=== PATIENT | male | born 1960 | race Caucasian/White ===

== ENCOUNTER 2020-07-31 09:44 | Inpatient (IN) | payer MEDICAID, SELFPAY ==
[~2020-07-31] VITALS: Ht 162.6 cm; Wt 88.5 kg
[2020-07-31 09:54] VITALS: BP 126/70
--- NOTE | 2020-07-31 10:00 | NUR ---
PT C/O PRODUCTIVE COUGH W/ CLEAR/WHITE PHLEGM, GENERAL WEAKNESS, MUSCLE ACHES X 1 WEEK, AND FEVER FOR ONE DAY DURING THE PAST WEEK. HE HAD COVID TESTED NEGATIVE 3 WEEKS AGO W/ NEGATIVE RESULT. PT PRESENTS WITH A&OX4, TACHYCADIA, AND TACHYPNEA, BUT NO DIAPHORESIS, OR RESPIRATORY DISTRESS, OR ACCESSORY MUSCLE USE. DENIES N/V/D; SKIN IS PINK/WARM/DRY; AAOX4 WITH EVEN AND STEADY GAIT; LUNGS CLEAR BL; HR EVEN AND REGULAR; PT DENIES ANY FEVER, CP, SOB, OR COUGH AT THIS TIME; PATIENT STATES PAIN OF 4/10 AT THIS TIME; VSS; PATIENT POSITIONED FOR COMFORT; HOB ELEVATED; BEDRAILS UP X2; BED DOWN. ER MD MADE AWARE OF PT STATUS.
--- NOTE | 2020-07-31 10:00 | NUR ---
Ambulated to bed 8
--- NOTE | 2020-07-31 10:11 | NUR ---
X-Ray at bedside.
[2020-07-31] MEDS ORDERED: AZITHROMYCIN 250 MG TAB PO ONE (10:20)
[2020-07-31] MEDS ORDERED: cefTRIAXone 1,000 MG VIAL ONE (10:22)
--- NOTE | 2020-07-31 10:41 | NUR ---
COVID PCR, JAZMÍN, FLU SWABS, LABS, BLOOD CULTURES OBTAINED AT BEDSIDE AND SENT TO THE LAB.
[2020-07-31 11:28] LABS: BASOPHILS # (AUTO) 0.1 K/uL (0.00-0.22); BASOPHILS % (AUTO) 0.2 % (0.0-2.0); EOSINOPHILS # (AUTO) 0.7 K/uL (0-0.4); EOSINOPHILS % (AUTO) 2.6 % (0.0-4.0); HEMATOCRIT 37.1 % (36-52); HEMOGLOBIN 11.7 g/dL (12.0-18.0); LYMPHOCYTES # (AUTO) 0.9 K/uL (2.0-11.5); LYMPHOCYTES % (AUTO) 3.4 % (20.5-51.1); MEAN CORPUSCULAR HEMOGLOBIN 21 pg (27-31); MEAN CORPUSCULAR HGB CONC 32 g/dL (33-37); MEAN CORPUSCULAR VOLUME 66.6 fL (80-94); MONOCYTES # (AUTO) 2.4 K/uL (0.8-1.0); MONOCYTES % (AUTO) 9.4 % (1.7-9.3); NEUTROPHILS # (AUTO) 21.4 K/uL (1.8-7.7); NEUTROPHILS % (AUTO) 84.4 % (42.2-75.2); PLATELET COUNT (AUTO) 388 K/uL (140-450); RED BLOOD CELL COUNT(AUTO) 5.57 MIL/uL (4.20-6.10); RED CELL DISTRIBUTION WIDTH 19.3 % (11.6-13.7)
[2020-07-31 11:48] LABS: ALBUMIN 2.4 g/dL (3.4-5.0); ANION GAP 14.9 (8-16); CREATININE 0.8 mg/dL (0.6-1.3); POTASSIUM 3.9 mmol/L (3.5-5.1); TOTAL BILIRUBIN 0.3 mg/dL (0.0-1.0)
[2020-07-31 11:55] LABS: WHITE BLOOD COUNT (AUTO) 25.3 K/uL (4.8-10.8)
--- NOTE | 2020-07-31 12:00 | NUR ---
pt is resting in the room with vss.
[2020-07-31 12:05] LABS: C-REACTIVE PROTEIN QUANT 9.3 mg/dL (0.0-0.9)
[2020-07-31] MEDS ORDERED: NACL 0.9% 1,000 ML IV ONE ×2 (12:35)
[2020-07-31] MEDS ORDERED: HYDROcodone/APAP 5/325 MG 1 TAB TAB PO PRN (12:45)
[2020-07-31] MEDS ORDERED: ZOLPIDEM 5 MG TAB PO PRN (12:45)
[2020-07-31] MEDS ORDERED: MORPHINE SULFATE 2 MG/ML SYR IVP PRN (12:45)
[2020-07-31] MEDS ORDERED: ONDANSETRON 4 MG/2 ML VIAL IM/IVP PRN (12:45)
[2020-07-31] MEDS ORDERED: DOCUSATE SODIUM 100 MG GELCAP PO PRN (12:45)
[2020-07-31] MEDS ORDERED: POTASSIUM CHLORIDE 10 MEQ TABER PO PRN (12:50)
[2020-07-31] MEDS ORDERED: MAG SULF 2000 MG/WATER PREMIX 50 ML IV PRN (12:50)
[2020-07-31] MEDS ORDERED: BENA40TA PO (12:57)
[2020-07-31] MEDS ORDERED: AMLO10TA PO (12:57)
[2020-07-31] MEDS ORDERED: METF500T PO (12:57)
[2020-07-31 13:45] VITALS: BP 117/75
--- NOTE | 2020-07-31 13:45 | NUR ---
Patient will be admitted to care of PNA. Admited to TELE. Will go to room 113. Belongings list completed. Report to DHAVAL Dawson.
--- NOTE | 2020-07-31 13:45 | NUR ---
RECEIVED REPORT FROM ER NURSE PAYTON, PATIENT TRANSPORTED VIA GURNEY ORIENTED TO ROOM, AAOX4, ON 2LPM OXYGEN VIA NC, SKIN INTACT, KOREAN SPEAKING, IV SITES INTACT AND PATENT ON RIGHT AC WITH 2LITERS NSS BOLUS.CHECK VITAL SIGNS BP 117/75 MT 102 RR 18 TEMP; 99.4 AND OXYGEN SATURATION AT 95%. SAFETY MEASURES IN PLACE AND CALL LIGHT WITHIN REACH WILL CONTINUE TO MONITOR,
--- NOTE | 2020-07-31 13:45 | NUR ---
RECEIVED REPORT FROM ER NURSE PAYTON,ADMITTED TO MED SURG TELE VIA YULISA, [id number] 2 LPM OXYGEN VIA MA, SKIN INTACT, NEW ZEALANDER SPEAKING, AMBULATORY
[2020-07-31 14:11] LABS: PROTHROMBIN TIME 9.9 secs (10.8-13.4)
--- NOTE | 2020-07-31 14:16 | NUR ---
MRSA SWAB AND URINE COLLECTED FOR DRUG SCREEN.SENT TO LABORATORY
[2020-07-31 14:27] LABS: MAGNESIUM 2.1 mg/dL (1.8-2.4); PHOSPHORUS 3.5 mg/dL (2.5-4.9); THYROID STIMULATING HORMONE 0.62 uIU/mL (0.34-3.74)
[2020-07-31] MEDS: NACL 0.9% 1,000 ML IV SCH ×2 (15:04→20:23)
[2020-07-31] MEDS: ACETAMINOPHEN 325 MG TAB PO PRN (15:19)
--- NOTE | 2020-07-31 15:19 | NUR ---
PATIENT HAS FEVER OF 101.6 GAVE MEDICINE.
[2020-07-31 16:00] VITALS: BP 115/79
--- NOTE | 2020-07-31 17:22 | NUR ---
MADE ROUNDS AT THIS TIME, CHECKED PATIENTS TEMPERATURE 98.7 DEGREES F. PATIENT IS SITTING AND NO DISTRESS NOTED, DENIES PAIN. SAFETY MEASURES IN PLACE , CALL LIGHT WITHIN REACH. WILL CONTINUE TO MONITOR.
--- NOTE | 2020-07-31 18:40 | NUR ---
MEDICATION DUE GIVEN AT THIS TIME, NO DISTRESS NOTED AND DENIES PAIN. SAFETY MEASURES IN PLACE, CALL LIGHT WITHIN REACH. WILL CONTINUE TO MONITOR,
[2020-07-31 18:50] LABS: APPEARANCE,URINE CLEAR (CLEAR); BILIRUBIN,URINE NEGATIVE (NEGATIVE); BLOOD, URINE NEGATIVE (NEGATIVE); COLOR,URINE YELLOW (YELLOW); LEUKOCYTE ESTERASE ,URINE NEGATIVE (NEGATIVE); NITRITE, URINE NEGATIVE (NEGATIVE); UGLUCOSE NEGATIVE (NEGATIVE)
[2020-07-31 19:07] LABS: BARBITURATE, URINE NEGATIVE ng/ml (NEG <=200); BENZODIAZEPINE, URINE NEGATIVE ng/mL (NEG <=200); CANNABINOID, URINE NEGATIVE ng/mL (NEG <=50); COCAINE, URINE NEGATIVE ng/mL (NEG <=300); OPIATE, URINE NEGATIVE ng/mL (NEG <=2000); PHENCYCLIDINE SCREEN,URINE NEGATIVE ng/mL (NEG <=25)
--- NOTE | 2020-07-31 19:12 | NUR ---
ENDORSED TO NIGHT NURSE FOR CONTINUITY OF CARE, PT IS STABLE
--- NOTE | 2020-07-31 19:16 | NUR ---
RECEIVED BEDSIDE REPORT FROM AM NURSE. PT IS AAOX4, RESTING COMFORTABLY IN BED. NO ACUTE DISTRESS NOTED. RESPIRATIONS EVEN AND UNLABORED. ON 2L OF NC. PT HAS IV ACCESS ON RAC G18. PT REMAINS IN STABLE CONDITION. SAFETY MEASURES IN PLACED. CALL LIGHT WITHIN REACH. WILL CONTINUE TO MONITOR.
[2020-07-31 20:00] VITALS: BP 132/77
[2020-07-31] MEDS: ZINC SULF 220 MG CAP PO SCH (20:37)
[2020-07-31] MEDS: metFORMIN 500 MG TAB PO SCH (20:37)
[2020-07-31] MEDS: BLOOD GLUCOSE MONITORING 1 DEV DEV FS SCH (20:49)
[2020-07-31] MEDS: ENOXAPARIN 80 MG/0.8 ML SYR SUBQ SCH (20:51)
--- NOTE | 2020-07-31 21:00 | NUR ---
ALL DUE MEDS GIVEN ORDERED, TOLERATED WELL.
--- NOTE | 2020-07-31 21:16 | NUR ---
PT IS LYING COMFORTABLY IN BED, REMAINS IN STABLE CONDITION. VERBALLY RESPONSIVE, PANAMANIAN SPEAKING BUT CAN SPEAK LITTLE BIT OF EGYPTIAN. CALL LIGHT IS IN REACH. SAFETY MEASURES IN PLACED. WILL CONTINUE TO MONITOR.
--- NOTE | 2020-07-31 21:55 | NUR ---
RECEIVED CALL FROM DR CHATMAN WITH NO NEW ORDERS.
--- NOTE | 2020-07-31 23:55 | NUR ---
PT ASKED FOR SOMETHING TO EAT, GAVE ORANGE JUICE, AND JELLO.
[2020-08-01] VITALS: BP 157/85
--- NOTE | 2020-08-01 01:55 | NUR ---
PT LYING IN BED ASLEEP, NO SOB, NO APPARENT DISTRESS NOTED. SAFETY MEASURES IN PLACED. DROPLET PRECAUTIONS OBSERVED, COVID PCR STILL PENDING. CALL LIGHT WITHIN REACH. WILL CONTINUE TO MONITOR.
--- NOTE | 2020-08-01 03:55 | NUR ---
CHECKED ON PT, IN BED RESTING COMFORTABLY IN BED WITH NO DISTRESS. VITAL SIGNS STABLE, AFEBRILE. SAFETY MEASURES IN PLACED. CALL LIGHT WITHIN REACH. WILL CONTINUE TO MONITOR.
[2020-08-01 04:00] VITALS: BP 150/82
[2020-08-01] MEDS: NACL 0.9% 1,000 ML IV SCH ×2 (04:05→11:59)
--- NOTE | 2020-08-01 05:55 | NUR ---
PT IN BED SLEEPING COMFORTABLY IN BED, NO SOB, NO DISTRESS NOTED. SAFETY MEASURES IN PLACED. CALL LIGHT WITHIN REACH. WILL CONTINUE TO MONITOR.
[2020-08-01 06:17] LABS: ALBUMIN 1.9 g/dL (3.4-5.0); ANION GAP 15.4 (8-16); CARBON DIOXIDE 20.9 mmol/L (21-32); CREATININE 0.7 mg/dL (0.6-1.3); MAGNESIUM 1.9 mg/dL (1.8-2.4); PHOSPHORUS 3.4 mg/dL (2.5-4.9); POTASSIUM 4.3 mmol/L (3.5-5.1); TOTAL BILIRUBIN 0.4 mg/dL (0.0-1.0)
[2020-08-01 06:25] LABS: HEMATOCRIT 34.3 % (36-52); HEMOGLOBIN 10.7 g/dL (12.0-18.0); MEAN CORPUSCULAR HEMOGLOBIN 21 pg (27-31); MEAN CORPUSCULAR HGB CONC 31 g/dL (33-37); MEAN CORPUSCULAR VOLUME 66.4 fL (80-94); PLATELET COUNT (AUTO) 363 K/uL (140-450); RED BLOOD CELL COUNT(AUTO) 5.17 MIL/uL (4.20-6.10); WHITE BLOOD COUNT (AUTO) 23.4 K/uL (4.8-10.8)
[2020-08-01 06:48] LABS: LYMPHOCYTES % (MANUAL) 2 % (20-46); MONOCYTES % (MANUAL) 5 % (5-12)
--- NOTE | 2020-08-01 07:20 | NUR ---
ENDORSED PT TO AM SHIFT NURSE IN STABLE CONDITION FOR CONTINUITY OF CARE.
--- NOTE | 2020-08-01 07:25 | NUR ---
RECEIVED REPORT FROM PM RNBIJU. PT CAME FROM HOME. CROATIAN SPEAKING, SPEAKS LITTLE ALBANIAN. CC: FEVER X1 WEEK, COUGH. DX: PNEUMONIA, R/O COVID 19. HX: HTN, DM. NKA. TELE: SR TO ST. FULL CODE. IV: RAC 18G RUNNING NS AT 130. CCHO 60G DIET. O2: NC 2L. SKIN IS INTACT. PLAN: MONITOR AND MANAGE SYMPTOMS.
[2020-08-01 08:00] VITALS: BP 133/84
[2020-08-01 08:37] LABS: T4 (THYROXINE) 5.5 ug/dL (4.5-12.0)
--- NOTE | 2020-08-01 08:39 | NUR ---
PATIENT HAS BEEN SCREENED AND CATEGORIZED MODERATE NUTRITION RISK. PATIENT WILL BE SEEN WITHIN 3-5 DAYS OF ADMISSION. 08/03/20 08/05/[address]
[2020-08-01] MEDS ORDERED: AZITHROMYCIN 250 MG TAB PO SCH (09:00)
[2020-08-01] MEDS: BLOOD GLUCOSE MONITORING 1 DEV DEV FS SCH ×2 (09:00→20:32)
--- NOTE | 2020-08-01 09:34 | NUR ---
SOCIAL WORK NOTE: Patient's Orientation Unable To Assess Information Provided By ROSEMARY ARMIJO - Comments SW WAS UNABLE TO MEET PATIENT AT BEDSIDE DUE TO MEDICAL CONDITION. SW CALLED PATIENT'S ROOM PHONE BUT PATIENT DID NOT ANSWER. SW CONTACTED PATIENT'S ROSEMARY TO COMPLETE ASSESSMENT. Bicycle Fitter, Realtionship and Phone Number ROSEMARY CLARK [phone] [facility] Power of Parole Board Member No Does Patient Have a POLST No Identifying Problems No Social Work Triggers Is A Social Work Consult Needed No Mandate Report Filed No Explanation Of Identifying Problems PATIENT IS A 59-YEAR-OLD MALE ADMITTED FOR PNEUMONIA. PATIENT HAS PMHX OF DIABETES AND HYPERTENSION. PATIENT'S REPORTED NO HISTORY OF SUBSTANCE ABUSE OR MENTAL HEALTH. Admitted From Home Pre-Admission Level Of Functioning Status Independent/Ambulatory Prior Resources/Services Used In Last 12 Months No Prior Resources Used Prior DME No Prior DME Used Dialysis Comments PATIENT'S REPORTED THAT PATIENT DOES NOT RECEIVE DIALYSIS. Living Situation Lives With Family House Patient Had Caregiver No Home Support No Caregiver Issues Financial Issues No Known Financial Issue Referral To The Financial Counselor Needed No Factors/Needs No D/C Needs Identified Explanation And Or Other Factors Affecting/Possible DC Needs PATIENT'S REPORTED THAT SHE WOULD PICK PATIENT UP AT DISCHARGE. Pt/Rep Participated In Discharge Plan Yes Patient/Family Agress With Discharge Plan Yes Discharge Plan Comments TENTATIVE DISCHARGE PLAN IS FOR PATIENT TO RETURN HOME. DC Plan Status Initiated Addendum: 08/09/20 at 1030 by Patricio MILLS CELSO CONTACTED PATIENT'S ROSEMARY ARMIJO [phone] TO DISCUSS PATIENT'S PLAN OF CARE. DURING DISCUSSION, PATIENT'S BECAME EMOTIONAL AND STATED THAT SHE IS UNABLE TO TALK AT THIS TIME. CELSO PROVIDED DIRECT LINE [phone] TO ROSEMARY AND INFORMED HER THAT RELEVANT RESOURCES, SUPPORT, OR COUNSELING IS AVAILABLE TO HER. ROSEMARY STATED SHE WOULD CONTACT CELSO AT A LATER TIME. ROSEMARY VERBALIZED APPRECIATION. Addendum: 08/11/20 at 1201 by Patricio Hernadez SS CELSO FOLLOWED UP WITH ROSEMARY ALEKSANDER [phone] TO PROVIDE ADDITIONAL SERVICES OR GRIEF COUNSELING. CELSO LEFT AND WILL FOLLOW UP WITH PATIENT'S FAMILY.
[2020-08-01] MEDS: ENOXAPARIN 80 MG/0.8 ML SYR SUBQ SCH ×2 (09:47→20:42)
[2020-08-01] MEDS: VITAMIN D 400 IU TAB PO SCH (09:49)
[2020-08-01] MEDS: BENAZEPRIL 20 MG TAB PO SCH (09:49)
[2020-08-01] MEDS: metFORMIN 500 MG TAB PO SCH ×2 (09:49→20:32)
[2020-08-01] MEDS: ZINC SULF 220 MG CAP PO SCH ×2 (09:49→20:35)
[2020-08-01] MEDS: amLODIPine 5 MG TAB PO SCH (09:49)
[2020-08-01] MEDS: ASCORBIC ACID 500 MG TAB PO SCH (09:49)
--- NOTE | 2020-08-01 09:50 | NUR ---
PASSED MEDICATIONS TO PT. NO COMPLAINTS OF PAIN. NO COMPLAINTS OF SHORTNESS OF BREATH.
--- NOTE | 2020-08-01 11:30 | NUR ---
PT WILL BE HAVING A CT SCAN WITH CONTRAST. MUST HOLD METFORMIN FOR 2DAYS AFTER PROCEDURE. DR MARTINEZ NOTIFIED. DR. CARDENAS PLACED ORDER TO HOLD IV FLUIDS. DR MARTINEZ NOTIFIED.
[2020-08-01 12:00] VITALS: BP 119/77
--- NOTE | 2020-08-01 12:16 | NUR ---
DC PLANNIN YRS OLD FEMALE PATIENT WAS ADMITTED FROM HOME WITH A DX OF PNEUMONIA. PATIENT HAS A HX OF DM AND HTN . CXR SHOWED PARTIAL CONSOLIDATION CONCERNING MULTIFOCAL PNEUMONIA.ORDERED CT CHEST. RAPID COVID TEST NEGATIVE. PCR IS PENDING. STARTED IVF, IV ABX ROCEPHIN AND AZITHROMYCIN. CONSULTED WITH ID DR CHATMAN AND PULMO DR MCMAHAN. DC PLAN TO GO HOME WHEN STABLE CM TO FOLLOW Addendum: 08/03/20 at 1439 by Eugenia Perry CM SEEN BY PULTESSA - RECOMMENDED TO SWITCH TO HIGH FLOW O2 Addendum: 08/04/20 at 1050 by Olivia Barrera CM DC PLANNING: CHEST XRAY SHOWED INCREASING BILATERAL CONSOLIDATION SUGGESTING WORSENING MULTIFOCAL PNEUMONIA, SEEN BY PULMO AND ID, LEGIONELLA ANTIGEN ORDERED , SPUTUM CULTURE PENDING. CONTINUE CURRENT ANTIBIOTICS THERAPY. CM TO FOLLOW Addendum: 08/05/20 at 1332 by Eugenia Perry CM TRANSFERRED TO ICU YESTERDAY 08/04/2020 AT 1156. ON HIGH FLOW O2 AT 60, FIO2 100%, O2 SAT 96%. ON ROCEPHIN, AZITHROMYCIN. LEGIONELLA PNEUMO AG IS STILL PENDING. HIV RAPID SCREEN NEGATIVE. SEEN BY GUSTAVO - CONTINUE SUPPLEMENTAL O2, PATIENT REMAINS AT HIGH FOR INTUBATION. Addendum: 08/07/20 at 1224 by Eugenia Perry CM STILL ON HIGH FLOW O2, O2 SAT 93%. SEEN BY GUSTAVO 08/06 - THE PATIENT REMAINS A HIGH RISK FOR INTUBATION, PROGNOSIS IS GUARDED. Addendum: 08/08/20 at 1407 by Eugenia Perry CM intubated yesterday 08/07/2020 at 1800. fio2 100%, peep 14, tv 500 and o2 sat 92%. Addendum: 08/09/20 at 1042 by Eugenia Perry CM ORALLY INTUBATED TO VENT, FIO2 100%, PEEP 14, O2 SAT 89%. SEDATED WITH FENTANYL AND PROPOFOL. ON ZOSYN, VANCOMYCIN AND LEVAQUIN. PER PULMO - TO START PRONING PATIENT.
--- NOTE | 2020-08-01 13:00 | NUR ---
COMPLETED ROUND. NO COMPLAINTS OF PAIN. NO COMPLAINTS OF SOB. FLUSHED IV DUE TO ALARM GOING OFF. IV IS PATENT.
--- NOTE | 2020-08-01 15:00 | NUR ---
COMPLETED ROUND. NO COMPLAINTS OF PAIN. NO SIGNS OF DISTRESS. PT IS RESTING IN A CHAIR. AWAKE. RESPIRATIONS ARE EVEN AND UNLABORED.
[2020-08-01 16:00] VITALS: BP 138/72
[2020-08-01] MEDS ORDERED: COMMUNICATION ORDER MC PRN (18:20)
[2020-08-01] MEDS ORDERED: PANTOPRAZOLE 40 MG TABEC PO PRN (18:30)
[2020-08-01] MEDS: guaiFENesin DM 200/20 MG-10 ML 10 ML UDC PO PRN (18:34)
--- NOTE | 2020-08-01 19:20 | NUR ---
TRANSFER OF CARE TO PM RN. PT IS STABLE. NO SIGNS OF DISTRESS. RESPIRATIONS ARE EVEN AND UNLABORED.
--- NOTE | 2020-08-01 19:21 | NUR ---
RECEIVED BEDSIDE REPORT FROM DAY RN. PT IS ST LUCIAN/INDONESIAN SPEAKING. AAOX4. RESPIRATIONS ARE EQUAL AND UNLABORED ON 2L O2 VIA NC. LUNG SOUNDS ARE DIMINISHED AT BASE. SKIN INTACT. COLOR IS APPROPRIATE FOR ETHNICITY. PER TAIL SAWYER TEMP 103.5 WILL RECHECK REMOVED BLANKETS AND LOWERED AC. IV ON RAC 18G SL. PT ON CCHO 60 GM DIET. IS AMBULATORY AND ABLE TO MAKE NEEDS KNOWN. PT ON DROPLET ISOLATION TO R/O COVID-19. PT WITH COUGH NON PRODUCTIVE. POC DISCUSSED WITH PT. CALL LIGHT IS WITHIN REACH. WILL CONTINUE TO MONITOR.
--- NOTE | 2020-08-01 19:30 | NUR ---
TEMP RECHECKED 99.7 STARTED COOLING MEASURES WITH ICE PACKS AND DECREASED AC ALL BLANKETS REMOVED. WILL RECHECK TEMP.
[2020-08-01 20:00] VITALS: BP 154/78
--- NOTE | 2020-08-01 20:26 | NUR ---
PATIENT RECEIVED ON ROOM AIR, ALERT, AWAKE, INTERACTIVE. PATIENT DENIES OF ANY SOB, NO APPARENT RESPIRATORY DISTRESS NOTED. PRN TX NOT INDICATED AT THIS TIME. INFORMED PT TO CALL FOR PRN TX WHEN EXPERIENCING SOB. WILL CONTINUE TO MONITOR PT. PT WAS ASSESSED BY REGISTRY RT RUSTAM.
[2020-08-01] MEDS: ACETAMINOPHEN 325 MG TAB PO PRN (20:35)
--- NOTE | 2020-08-01 20:35 | NUR ---
VSS. TEMP 99.7 STARTED COOLING MEASURES AND ADMINISTERED TYLENOL. CRISTOPHER MEDICATIONS GIVEN. HELD METFORMIN D/T CT WITH CONTRAST TODAY. MED EDUCATION GIVEN. PT VERBALIZED UNDERSTANDING. ALL NEEDS MET. CALL LIGHT IS WITHIN REACH.
[2020-08-01] MEDS ORDERED: PANTOPRAZOLE 40 MG TABEC PO SCH (20:45)
--- NOTE | 2020-08-01 22:10 | NUR ---
ROUNDS MADE. PT IS SLEEPING COMFORTABLY IN BED WITH EYES CLOSED. CHEST RISE AND FALL NOTED. CALL LIGHT IS WITHIN REACH. WILL CONTINUE TO MONITOR.
[2020-08-02] VITALS: BP 132/70
--- NOTE | 2020-08-02 | NUR ---
VITAL SIGNS ARE WITHIN NORMAL LIMITS. PT DENIES ANY PAIN OR DISCOMFORT. SAFETY MEASURES ARE IN PLACE. CALL LIGHT IS WITHIN REACH. WILL CONTINUE TO MONITOR
--- NOTE | 2020-08-02 02:15 | NUR ---
ROUNDS MADE. PT IS SLEEPING COMFORTABLY IN BED WITH EYES CLOSED. CHEST RISE AND FALL NOTED. CALL LIGHT IS WITHIN REACH. WILL CONTINUE TO MONITOR.
[2020-08-02] MEDS ORDERED: DEXTROSE 50% 50 ML SYR IVP PRN (03:55)
[2020-08-02 04:00] VITALS: BP 154/71
[2020-08-02] MEDS: guaiFENesin DM 200/20 MG-10 ML 10 ML UDC PO PRN ×2 (04:31→22:32)
--- NOTE | 2020-08-02 04:31 | NUR ---
VSS. ADMINISTERED PRN ROBITUSSIN FOR COUGH AND TYLENOL FOR TEMP 100.5. PT TOLERATING WELL. ALL NEEDS MET. WILL CONTINUE TO MONITOR.
[2020-08-02] MEDS: ACETAMINOPHEN 325 MG TAB PO PRN ×2 (04:32→13:02)
[2020-08-02 05:10] LABS: HEMATOCRIT 36.8 % (36-52); HEMOGLOBIN 11.7 g/dL (12.0-18.0); MEAN CORPUSCULAR HEMOGLOBIN 21 pg (27-31); MEAN CORPUSCULAR HGB CONC 32 g/dL (33-37); MEAN CORPUSCULAR VOLUME 65.5 fL (80-94); PLATELET COUNT (AUTO) 375 K/uL (140-450); RED BLOOD CELL COUNT(AUTO) 5.62 MIL/uL (4.20-6.10); RED CELL DISTRIBUTION WIDTH 18.9 % (11.6-13.7)
[2020-08-02 05:36] LABS: ALBUMIN 1.9 g/dL (3.4-5.0); ANION GAP 14.7 (8-16); CARBON DIOXIDE 21.8 mmol/L (21-32); CREATININE 0.8 mg/dL (0.6-1.3); MAGNESIUM 1.8 mg/dL (1.8-2.4); PHOSPHORUS 2.9 mg/dL (2.5-4.9); POTASSIUM 3.5 mmol/L (3.5-5.1); TOTAL BILIRUBIN 0.6 mg/dL (0.0-1.0)
[2020-08-02 06:08] LABS: WHITE BLOOD COUNT (AUTO) 32.2 K/uL (4.8-10.8)
[2020-08-02 06:41] LABS: LYMPHOCYTES % (MANUAL) 2 % (20-46); MONOCYTES % (MANUAL) 4 % (5-12)
[2020-08-02 06:43] LABS: EOSINOPHILS % (MANUAL) 6 % (0-4)
--- NOTE | 2020-08-02 07:19 | NUR ---
GAVE BEDSIDE REPORT TO DAY RN. PT ENDORSED IN STABLE CONDITION.
--- NOTE | 2020-08-02 07:20 | NUR ---
RECEIVED REPORT FROM TRAFFIC LIEUTENANT RN FOR CONTINUITY OF CARE. PATIENT RESTING IN BED, SLEEPING, VISIBLE CHEST RISE AND FALLS. O2 SAT 97% WITH 2L NC. OCCASIONAL PRODUCTIVE COUGH. DROPLET PRECAUTION FOR R/O COVID. SKIN WARM AND DRY INTACT. IV SITE RIGHT AC 20G SALINE LOCK. PATENT. NO ACUTE DISTRESS NOTED AT THIS TIME. SAFETY MEASURES IN PLACE, CALL LIGHT WITHIN REACH. WILL CONTINUE TO MONITOR.
[2020-08-02 08:00] VITALS: BP 153/75
[2020-08-02] MEDS: amLODIPine 5 MG TAB PO SCH (08:57)
[2020-08-02] MEDS: BENAZEPRIL 20 MG TAB PO SCH (08:57)
[2020-08-02] MEDS: PANTOPRAZOLE 40 MG TABEC PO SCH (08:57)
[2020-08-02] MEDS: VITAMIN D 400 IU TAB PO SCH (08:57)
[2020-08-02] MEDS: ASCORBIC ACID 500 MG TAB PO SCH (08:58)
[2020-08-02] MEDS: ZINC SULF 220 MG CAP PO SCH ×2 (08:58→20:15)
[2020-08-02] MEDS: metFORMIN 500 MG TAB PO SCH ×2 (09:00→20:49)
--- NOTE | 2020-08-02 09:00 | NUR ---
SCHEDULED MORNING MEDICATIONS GIVEN. EDUCATION PROVIDED, PATIENT TOLERATED WELL. METFORMIN NOT GIVEN. HOLD FOR 48 HOURS S/P CT SCAN WITH CONTRAST. PER SUPERVISOR DOCK RN. NEXT DOSE OF METFORMIN WILL BE 08/03/2020 @ 2100. PATIENT'S O2 SAT 89% WITH 3L NC. INCREASED TO 4L. O2 SAT 90% - 91%. ENCOURAGED PATIENT TO TAKE DEEP BREATH AND RELAX. SAFETY MEASURES IN PLACE, CALL LIGHT WITHIN REACH. WILL CONTINUE TO MONITOR.
[2020-08-02] MEDS: ENOXAPARIN 80 MG/0.8 ML SYR SUBQ SCH ×2 (09:01→20:26)
[2020-08-02] MEDS: BLOOD GLUCOSE MONITORING 1 DEV DEV FS SCH ×2 (09:14→20:50)
[2020-08-02] MEDS: INSULIN LISPRO SLIDING SCALE 100 UNITS/ML VIAL SUBQ PRN ×2 (09:19→20:27)
--- NOTE | 2020-08-02 09:19 | NUR ---
4 UNITS OF HUMALOG ADMINISTERED FOR BLOOD GLUCOSE LEVEL 236. EDUCATION PROVIDED, PATIENT TOLERATED WELL. O2 SAT 90% WITH 4 L NC. WILL CALL RT TO CHECK THE PATIENT.
[2020-08-02 12:00] VITALS: BP 129/76
[2020-08-02] MEDS: PIPERACILLIN/TAZOBACTAM 3.375 GM in DEXTROSE 5% 50 ML IV SCH ×2 (12:00→17:59)
--- NOTE | 2020-08-02 12:00 | NUR ---
SCHEDULED MEDICATION IV ZOSYN ADMINISTERED VIA IVPB, EDUCATION PROVIDED, PATIENT TOLERATED WELL. PATIENT'S O2 SAT 90% WITH 4L NC. INFORMED RT TO CHECK THE PATIENT. VITAL SIGNS CHECKED. TEMP 101.3, WILL GIVE TYLENOL. CALL LIGHT WITHIN REACH. PATIENT TOLERATED WELL.
--- NOTE | 2020-08-02 12:35 | NUR ---
RT CHECKED THE PATIENT, BREATHING TREATMENT DONE. PATIENT'S O2 SAT 92% WITH 10L OXYMIZER. HR 135. PER RT. PATIENT NEEDS TO TAKE DEEP BREATH AND BREATHING THROUGH NOSE. ASKED BELIZEAN SPEAKING MICROFILMING DOCUMENT PREPARER TO TRANSLATE. PATIENT VERBALIZED UNDERSTANDING. WILL CONTINUE TO MONITOR.
--- NOTE | 2020-08-02 13:05 | NUR ---
TYLENOL GIVEN FOR TEMP 101.3. ICE PACK GIVEN. EDUCATION PROVIDED, ENCOURAGED PATIENT TO DRINK WATER, KEEP HYDRATION. VERBALIZED UNDERSTANDING. WILL CONTINUE TO MONITOR.
--- NOTE | 2020-08-02 14:00 | NUR ---
PER FILM TESTS CHECKER MIRACLE, PATIENT'S SPUTUM SAMPLE WAS CONTAMINATED AND REQUEST ANOTHER SPUTUM CULTURE. RECOLLECTED AND SENT TO THE LAB.
[2020-08-02 16:00] VITALS: BP 117/70
--- NOTE | 2020-08-02 17:15 | NUR ---
MADE ROUNDS. PATIENT RESTING IN BED WITH RIGHT LATERAL POSITION. O2 SAT 92% WITH 8L VIA OXYMIZER. HR 109. ENCOURAGED PATIENT TO RELAX AND TAKE DEEP BREATHE. SAFETY MEASURES IN PLACE, WILL CONTINUE TO MONITOR.
--- NOTE | 2020-08-02 18:01 | NUR ---
SCHEDULED MEDICATION ADMINISTERED. EDUCATION PROVIDED. PATIENT'S O2 SAT 88% WITH 8L OXYMIZER. INCREASED TO 10L, O2 SAT 88%. CALL RT. WAS INFORMED TO INCREASE TO 12L, O2 SAT 90-91%. RT WILL COME TO CHECK THE PATIENT. ENCOURAGED PATIENT TO TAKE DEEP BREATH. WILL CONTINUE TO MONITOR.
--- NOTE | 2020-08-02 18:32 | NUR ---
INFORMED DR. LEÓN REGARDING PATIENT'S CONDITION. O2 SAT 90% WITH 12 L VIA OXYMIZER. CONTINUE WITH CURRENT TREATMENT PLAN. NO NEW ORDER OBTAINED. WILL CONTINUE FOLLOW UP WITH RT, AND CLOSELY MONITOR THE PATIENT.
--- NOTE | 2020-08-02 18:57 | NUR ---
CALLED RT AGAIN. WILL COME TO CHECK THE PATIENT AFTER DONE THE CHANGE SHIFT REPORT. WILL FOLLOW UP.
--- NOTE | 2020-08-02 19:05 | NUR ---
ENDORSED PATIENT TO TURN LASTER RN FOR CONTINUITY OF CARE. PATIENT IS ON 12L VIA OXYMIZER, O2 SAT 90%.
--- NOTE | 2020-08-02 19:28 | NUR ---
RT CHECKED ON THE PATIENT. CONTINUE WITH 12L O2 VIA OXYMIZER. INFORMED FURNITURE UPHOLSTERER TO CLOSELY TO MONITOR THE PATIENT.
--- NOTE | 2020-08-02 19:30 | NUR ---
RECEIVED REPORT FROM POLO PUENTES DAYSHIFT NURSE AT BEDSIDE FOR CONTINUITY OF CARE, PT IN STABLE CONDITION.
[2020-08-02 20:00] VITALS: BP 122/96
--- NOTE | 2020-08-02 20:00 | NUR ---
PT IN BED AOX4 OXYMIZER AT 12 LITERS. RT MADE AWARE AND CHECKED PT, ORDER TO KEEP PT AT 90% 02 AND ABOVE. IV SITE ON RAC INTACT AND RUNNING N/S AT 10MLS/HR. V/S FOLLOWS: T 99.6. PT DECLINED COOLING MEASURES. P 120 R 18 B/P 122/96 02 IS AT 90%. UNIVERSAL FALLS PRECAUTIONS IN PLACE.
--- NOTE | 2020-08-02 21:00 | NUR ---
PT IN BED AND ON 12 LITERS VIA OXYMIZER 02 IS 91%. PT ALSO HAS IV SITE 18 GUAGE R [facility]. PT HAD PULLED OUT IV SITE AND WAS GIVEN NEW SITE ON RIGHT HAND 22G AND ORDERED ROCEPHIN WAS GIVEN . PT ALSO GIVEN ZINC SULFATE AND LOVENOX SQ S ORDERED. PT EDUCATED ON WHY MEDICATIONS WERE ORDERED AND SIDE EFFECTS, REINFORCEMENT NEEDED.
--- NOTE | 2020-08-02 22:30 | NUR ---
PT C/O OF HEART BURN AND COUGHING, PT WAS GIVEN PRN ROBITUSSIN FOR COUGHING, NO PRN ORDER NOTED FOR HEARTBURN WILL CALL MD REGARDING PT REQUEST. PT HEART RATE ALSO IN THE 120'S, WILL NOTIFY MD ARTIST RELATIONSHIP MANAGER.
[2020-08-02] MEDS ORDERED: MORPHINE SULFATE 2 MG/ML SYR IVP ONE (23:15)
[2020-08-02] MEDS ORDERED: PANTOPRAZOLE 40 MG TABEC PO ONE (23:15)
--- NOTE | 2020-08-02 23:15 | NUR ---
TEXTED MD LEÓN , NEW ORDERS NOTED FOR STAT EKG, TROPONIN LAB DRAW WELL MORPHINE AND PROTONIX X1.
[2020-08-03] VITALS: BP 130/66
[2020-08-03 05:26] LABS: ALBUMIN 1.6 g/dL (3.4-5.0); ANION GAP 15.2 (8-16); CARBON DIOXIDE 22.1 mmol/L (21-32); CREATININE 0.7 mg/dL (0.6-1.3); MAGNESIUM 1.9 mg/dL (1.8-2.4); PHOSPHORUS 2.9 mg/dL (2.5-4.9); POTASSIUM 3.3 mmol/L (3.5-5.1); TOTAL BILIRUBIN 0.6 mg/dL (0.0-1.0)
[2020-08-03 05:30] LABS: BASOPHILS # (AUTO) 0.1 K/uL (0.00-0.22); BASOPHILS % (AUTO) 0.4 % (0.0-2.0); EOSINOPHILS # (AUTO) 1.3 K/uL (0-0.4); EOSINOPHILS % (AUTO) 5.1 % (0.0-4.0); HEMATOCRIT 35.1 % (36-52); HEMOGLOBIN 11.1 g/dL (12.0-18.0); LYMPHOCYTES % (AUTO) 3.6 % (20.5-51.1); MEAN CORPUSCULAR HEMOGLOBIN 21 pg (27-31); MEAN CORPUSCULAR HGB CONC 32 g/dL (33-37); MONOCYTES # (AUTO) 1.6 K/uL (0.8-1.0); MONOCYTES % (AUTO) 6.2 % (1.7-9.3); NEUTROPHILS # (AUTO) 22.6 K/uL (1.8-7.7); NEUTROPHILS % (AUTO) 84.7 % (42.2-75.2); PLATELET COUNT (AUTO) 341 K/uL (140-450); RED BLOOD CELL COUNT(AUTO) 5.39 MIL/uL (4.20-6.10); RED CELL DISTRIBUTION WIDTH 18.6 % (11.6-13.7)
--- NOTE | 2020-08-03 07:05 | NUR ---
RECEIVED REPORT FROM NIGHTSHIFT NURSE. PT RESTING IN BED. ABLE TO MAKE NEEDS KNOWN. RESPIRATIONS EVEN AND UNLABORED WITH NO SOB OR RESPIRATORY DISTRESS. SKIN WARM AND DRY TO TOUCH. IV SITE IN R HAND 22G IS CLEAN, DRY, AND INTACT. SAFETY MEASURES IN PLACE. WILL CONTINUE TO MONITOR
[2020-08-03] MEDS: ALBUTEROL HFA MDI 90 MCG/ACTUATION 8 GM INH PRN ×2 (07:37→13:40)
[2020-08-03 08:00] VITALS: BP 133/68
[2020-08-03] MEDS: metFORMIN 500 MG TAB PO SCH ×2 (08:32→21:21)
[2020-08-03 08:35] LABS: WHITE BLOOD COUNT (AUTO) 26.7 K/uL (4.8-10.8)
[2020-08-03] MEDS: VITAMIN D 400 IU TAB PO SCH (08:35)
[2020-08-03] MEDS: BENAZEPRIL 20 MG TAB PO SCH (08:36)
[2020-08-03] MEDS: AZITHROMYCIN 250 MG TAB PO SCH (08:36)
[2020-08-03] MEDS: ZINC SULF 220 MG CAP PO SCH ×2 (08:36→21:22)
[2020-08-03] MEDS: amLODIPine 5 MG TAB PO SCH (08:36)
[2020-08-03] MEDS: ASCORBIC ACID 500 MG TAB PO SCH (08:37)
[2020-08-03] MEDS: PANTOPRAZOLE 40 MG TABEC PO SCH (08:37)
[2020-08-03] MEDS: ENOXAPARIN 80 MG/0.8 ML SYR SUBQ SCH ×2 (08:38→21:05)
--- NOTE | 2020-08-03 08:53 | NUR ---
ADMINISTERED SCHED MED PRESCRIBED PER MD ORDER. PT TOLERATED WELL. MEDICATION EDUCATION PERFORMED. PT VERBALIZED UNDERSTANDING. SAFETY MEASURES IN PLACE. WILL CONTINUE TO MONITOR
[2020-08-03] MEDS: INSULIN LISPRO SLIDING SCALE 100 UNITS/ML VIAL SUBQ PRN ×2 (09:00→21:31)
[2020-08-03] MEDS: BLOOD GLUCOSE MONITORING 1 DEV DEV FS SCH ×2 (09:00→21:42)
[2020-08-03] MEDS: guaiFENesin DM 200/20 MG-10 ML 10 ML UDC PO PRN ×2 (09:01→21:35)
[2020-08-03 12:00] VITALS: BP 134/76
--- NOTE | 2020-08-03 12:10 | NUR ---
08/03/20 RD INITIAL ASSESSMENT COMPLETED PLEASE REFER TO NUTRITION ASSESSMENT UNDER CARE ACTIVITY FOR ESTIMATED NUTRITIONAL NEEDS. 1. PENDING SPEECH THERAPIST RECOMMENDATIONS FOR DIET TEXTURE AND LIQUID CONSISTENCY 2. [facility] 3. RECOMMEND GLUCERNA ONCE DAILY 4. RD PROVIDED NUTRITION EDUCATION FOR CONSISTENT CARBOHYDRATE INTAKE 5. RD TO FOLLOW-UP 3-5 DAYS, MODERATE RISK NELSY JIN, RD
[2020-08-03] MEDS: ACETAMINOPHEN 325 MG TAB PO PRN ×2 (12:16→21:22)
--- NOTE | 2020-08-03 12:25 | NUR ---
PT HAS POTASSIUM 3.3. PRN POTASSIUM ADMINISTERED PRESCRIBED PER MD ORDER. PT HAS FEVER. PRN TYLENOL ADMINISTERED PRESCRIBED PER MD ORDER. MEDICATION EDUCATION PERFORMED. PT VERBALIZED UNDERSTANDING. SAFETY MEASURES IN PLACE. WILL CONTINUE TO MONITOR
--- NOTE | 2020-08-03 15:05 | NUR ---
TOLD PATIENT THAT IF HIS ANY QUESTIONS OR CONCERNS THAT SHE CAN CALL THE HOSPITAL AND SPEAK WITH THE NURSE AT ANY TIME SO THAT SHE CAN FEEL INCLUDED IN PATIENTS PLAN OF CARE.
[2020-08-03 16:00] VITALS: BP 136/74
--- NOTE | 2020-08-03 17:12 | NUR ---
HOURLY ROUNDING. PT RESTING IN BED. ABLE TO MAKE NEEDS KNOWN. RESPIRATIONS EVEN AND UNLABORED WITH NO SOB OR RESPIRATORY DISTRESS. SKIN WARM AND DRY TO TOUCH. SAFETY MEASURES IN PLACE. WILL CONTINUE TO MONITOR
--- NOTE | 2020-08-03 19:20 | NUR ---
ENDORSED AT BEDSIDE TO NIGHTSHIFT NURSE FOR CONTINUITY OF CARE. PT IS STABLE
[2020-08-03 20:00] VITALS: BP 135/63
--- NOTE | 2020-08-03 20:27 | NUR ---
DAUGHTER GET LINDSAY CALLED ASKING ABOUT FATHER CONDITION. RECEIVED VERBAL PERMISSION FROM FATHER TO UPDATE HIS CONDITION TO DAUGHTER GET. DAUGHTER WAS UPDATED REGARDING FATHER'S CONDITION.
--- NOTE | 2020-08-03 23:00 | NUR ---
PT REQUEST IV FLUIDS RUNNING AT 10MLS/HR TO BE DISCONNECTED. TEMP RETAKE DONE IT IS 97.1. PT REQUEST HEARTBURN MEDICATION, WILL SPEAK TO SWING SAW OPERATOR MD PINTO FOR ANY NEW PRN ORDERS.
[2020-08-04] VITALS (10 sets, daily range): BP systolic 106–184; BP diastolic 43–90
[2020-08-04] MEDS ORDERED: PANTOPRAZOLE 40 MG INJ VIAL IVP SCH ×2 (00:10→21:05)
--- NOTE | 2020-08-04 00:17 | NUR ---
PT REPOSITIONED IN BED V/S FOLLOWS: T 99.9 P 83 R 20 B/P 163/61 02 93% ON ROOM AIR. WOOD MACHINIST MD PINTO MADE AWARE ORDERS FOR PRN B/P OVER 160 RECEIVED. PT ALSO GIVEN COOLING MEASURES FOR INCREASED TEMP. ALL FALLS PRECAUTIONS IN PLACE. Addendum: 08/04/20 at 0020 by Estela Ring RN WRONG PT/WRONG CHART
--- NOTE | 2020-08-04 00:25 | NUR ---
SPOKE WITH ADJUSTMENT SUPERVISOR MD PINTO REGARDING PT REQUEST FOR HEART BURN MEDICATION. V/S FOLLOWS: T 97.8 P 105 R 20 B/P 117/63 02 96% WITH 45 LITERS HI FLOW N/C. ALL FALLS PREVENTION PROTOCOL IN PLACE.
--- NOTE | 2020-08-04 01:13 | NUR ---
PT IN BED RESTING WITH EYES CLOSED, BUT AROUSABLE TO NAME, HE WAS GIVEN IVP 40MG PROTONIX ORDERED FOR REQUESTED PRN GERD MEDICINE. PURPOSE AND SIDE EFFECTS DISCUSSED, PT VERBALIZED UNDERSTANDING.
--- NOTE | 2020-08-04 04:15 | NUR ---
PT IN BED RESTING WITH EYES CLOSED CONTINUES ON 45 LITERS HIGH FLOW N/C. PT IS STATING AT 90% 02. OTHER V/S FOLLOWSl: T 98.6 P 129 R 22 BP 131/70 02 90%. ALL REQUESTED NEEDS ATTENDED BY STAFF. ALL UNIVERSAL FALLS PRECAUTIONS IN PLACE.
[2020-08-04 05:17] LABS: BASOPHILS % (AUTO) 0.2 % (0.0-2.0); EOSINOPHILS # (AUTO) 1.5 K/uL (0-0.4); EOSINOPHILS % (AUTO) 6.1 % (0.0-4.0); HEMATOCRIT 35.1 % (36-52); HEMOGLOBIN 11.2 g/dL (12.0-18.0); LYMPHOCYTES # (AUTO) 0.7 K/uL (2.0-11.5); LYMPHOCYTES % (AUTO) 2.7 % (20.5-51.1); MEAN CORPUSCULAR HEMOGLOBIN 21 pg (27-31); MEAN CORPUSCULAR HGB CONC 32 g/dL (33-37); MEAN CORPUSCULAR VOLUME 65.1 fL (80-94); MONOCYTES # (AUTO) 1.3 K/uL (0.8-1.0); MONOCYTES % (AUTO) 5.3 % (1.7-9.3); NEUTROPHILS # (AUTO) 20.9 K/uL (1.8-7.7); NEUTROPHILS % (AUTO) 85.7 % (42.2-75.2); PLATELET COUNT (AUTO) 333 K/uL (140-450); RED CELL DISTRIBUTION WIDTH 18.8 % (11.6-13.7); WHITE BLOOD COUNT (AUTO) 24.4 K/uL (4.8-10.8)
[2020-08-04 06:08] LABS: ALBUMIN 1.4 g/dL (3.4-5.0); ANION GAP 12.6 (8-16); CARBON DIOXIDE 25.1 mmol/L (21-32); CREATININE 0.7 mg/dL (0.6-1.3); MAGNESIUM 2.1 mg/dL (1.8-2.4); PHOSPHORUS 2.2 mg/dL (2.5-4.9); POTASSIUM 3.7 mmol/L (3.5-5.1); TOTAL BILIRUBIN 0.5 mg/dL (0.0-1.0)
--- NOTE | 2020-08-04 07:20 | NUR ---
RECEIVED REPORT FROM NIGHT NURSE FOR CONTINUITY OF CARE, PT IS AAOX4, PT ON 45L HI-FLOW NASAL CANNULA OXYGEN, PT HAS RIGHT HAND 22G SALINE LOCK, PT WANTS NEW COUGH MEDICATION THE OTHER MEDICATION GIVES HIM ACID REFLUX, INTRODUCE SELF, UPDATED WHITEBOARD, BED IN LOW POSITION, SAFETY MEASURES IN PLACE, CALL LIGHT WITHIN REACH, WILL CONTINUE TO MONITOR.
[2020-08-04] MEDS: AZITHROMYCIN 250 MG TAB PO SCH (09:00)
[2020-08-04] MEDS: ENOXAPARIN 80 MG/0.8 ML SYR SUBQ SCH (09:01)
[2020-08-04] MEDS: INSULIN LISPRO SLIDING SCALE 100 UNITS/ML VIAL SUBQ PRN ×2 (09:02→21:05)
[2020-08-04] MEDS: BLOOD GLUCOSE MONITORING 1 DEV DEV FS SCH ×2 (09:03→20:59)
[2020-08-04] MEDS: ASCORBIC ACID 500 MG TAB PO SCH (09:04)
[2020-08-04] MEDS: BENAZEPRIL 20 MG TAB PO SCH (09:04)
[2020-08-04] MEDS: PANTOPRAZOLE 40 MG TABEC PO SCH (09:04)
[2020-08-04] MEDS: ZINC SULF 220 MG CAP PO SCH ×2 (09:04→21:03)
[2020-08-04] MEDS: amLODIPine 5 MG TAB PO SCH (09:05)
[2020-08-04] MEDS: metFORMIN 500 MG TAB PO SCH ×2 (09:05→21:03)
[2020-08-04] MEDS: guaiFENesin DM 200/20 MG-10 ML 10 ML UDC PO PRN ×2 (09:06→21:04)
--- NOTE | 2020-08-04 09:12 | NUR ---
ADMINISTERED SCHEDULED MEDICATION, 2 UNITS OF HUMALOG ADMINISTERED FOR BLOOD GLUCOSE OF 197, MEDICATION EDUCATION PROVIDED, PT VERBALIZED UNDERSTANDING, PT TOLERATED WELL, PT IS STABLE, CALL LIGHT WITHIN REACH, WILL CONTINUE TO MONITOR.
[2020-08-04] MEDS: VITAMIN D 400 IU TAB PO SCH (09:47)
[2020-08-04] MEDS: ALBUTEROL 0.083% 2.5 MG/3 ML NEBU INH SCH ×4 (10:40→22:28)
--- NOTE | 2020-08-04 10:50 | NUR ---
*ST: Bedside Swallow Evaluation* Pt is 59 yo Cymro-speaking M admitted from home 07/31/2020 c productive cough x1 wk & fever x1 day. Pt (-) COVID PCR 07/31 and (-) influenza A/B 07/31. Work-up multi-focal CAP, possible Legionella per Pulmonology. PMHx DM, HTN. CT Chest 08/01 - bilat consolidation & infiltration, most prominently noted in the lingula, consistent c multifocal pna; min L pleural effusion; mod large hiatal hernia. CXR 08/03 - increasing bilat consolidations when compared to 08/01/2020 suggesting worsening multifocal pna. Cleared with RNJazmyn, for BDSE. Per RN, pt c/o not having an appetite but took PO meds and ate pancakes without overt difficulty. RN reported pt recently given cough medication. Pt seen seated EOB, alert, on ?45L O2 HFNC, O2 sats at baseline 86-88% throughout session. Pt communicated in simple sentences with clear vocal quality and c/o phlegm which is not improving. Pt reports no difficulty with swallowing at this time. Pt observed to self-feed the following items: ice chips x6, ~1.5oz apple sauce, ~2oz canned MS pears, and engage in sequential cup sip of thin cold water (~ 3oz). Pt had timely and efficient mastication, fair control of bolus, no residue, timely swallow trigger, no overt coughing nor throat clearing. Vocal quality clear, dry, and unchanged post PO's given. Results and recommendations d/w pt's nsg staff. P: Rec continue present Regular (moist)/Thin Liquids diet Nsg to monitor and notify CUT OFF [facility] LOG of changes in status -Samara Robles MA, [facility]-C[facility] LOG Addendum: 08/04/20 at [address] Amended: Links added.
--- NOTE | 2020-08-04 11:05 | NUR ---
NOTIFIED MD NASH PT O2 IS 97, RECEIVED TORB FOR ABG. WILL INPUT ORDER AND CARRY OUT.
--- NOTE | 2020-08-04 11:35 | NUR ---
TRANSFERRED PT TO ICU FOR CONTINUITY OF CARE, PT HAS LABORED BREATHING ON HI FLOW WITH 100 OXYGEN, PT IS STABLE. REPORT GIVEN TO NURSE BENEDICT FOR CONTINUITY OF CARE
--- NOTE | 2020-08-04 11:36 | NUR ---
RECEIVED REPORT FROM DHAVAL HUFFMAN FOR CONTINUITY OF CARE. CC: SOB AND COUGH X1 WEEK. ADMITTING DX: PNA. PATIENT RESTING IN BED, AWAKE. PT IS AMBULATORY. AOX4, MAC[place]ONIAN SPEAKING. O2 SAT 88% ON 35L HIGH FLOW O2 NC, FIO2 88%, RESPIRATIONS ARE DEEP AND LABORED. OCCASIONAL PRODUCTIVE COUGH. SKIN IS INTACT. CONTINENT BOWEL AND BLADDER. IV SITE RIGHT HAND 22G SALINE LOCK. SAFETY MEASURES IN PLACE, CALL LIGHT WITHIN REACH. WILL CONTINUE TO MONITOR.
[2020-08-04] MEDS: ACETAMINOPHEN 325 MG TAB PO PRN ×2 (12:30→22:00)
--- NOTE | 2020-08-04 12:30 | NUR ---
TEMP 101.0, COOLING MEASURES RENDERED. TYLENOL GIVEN ORDERED
--- NOTE | 2020-08-04 13:00 | NUR ---
TEMP 99.4, EATING LUNCH AT THIS TIME. WILL CONTINUE TO MONITOR
--- NOTE | 2020-08-04 16:00 | NUR ---
PT RESTING IN BED. NO C/O PAIN, STILL ON 35L HIGH FLOW N/C, O2SAT 98%, WITH FAST BUT EVEN RESPIRATIONS. NO APPARENT DISTRESS
--- NOTE | 2020-08-04 18:35 | NUR ---
PT SITTING IN BED. NO C/O PAIN, NO S/S OF DISTRESS, WITH FAST AND EVEN RESPIRATIONS. ON 35L HIGH FLOW O2 FIO2 87%
--- NOTE | 2020-08-04 20:00 | NUR ---
REPORT RECEIVED FROM DAY SHIFT RN. PT ON NASAL CANNULA HIGH FLOW @ 40LPM WITH 100% FIO2. PT RESPIRATION IS EVEN BUT LABORED. ALERT AND ORIENTED. ABLE TO MAKE NEEDS KNOWN TO STAFF. SKIN WARM, DRY AND INTACT. ABDOMEN SOFT, ROUND AND NON TENDER. ORAL MUCOSA PINK AND MOIST. DENIES PAIN AT TIS TIME. PERIPHERAL ACCESS ON THE RIGHT HAND G22. ASYMPTOMATIC, PATENT AND INTACT. BED IN LOWEST POSITION, SIDE RAILS UP. ALL SAFETY MEASURES IN PLACE. WILL CONTINUE TO MONITOR PT.
[2020-08-04] MEDS: cefTRIAXone 2,000 MG in DEXTROSE 5% 100 ML IV SCH (21:02)
[2020-08-04] MEDS: LORazepam 2 MG/ML VIAL IM/IVP PRN (21:05)
--- NOTE | 2020-08-04 21:05 | NUR ---
PT COMPLAINTS OF HEART BURN. CALLED DR. NASH AND ORDERED PROTONIX IV 40MG ONE TIME DOSE. WILL CONTINUE TO MONITOR.
--- NOTE | 2020-08-04 21:07 | NUR ---
PT COMPLAINTS THAT HE IS ANXIOUS PRN ATIVAN GIVEN ORDERED. PT WAS COUGHING TOO, PRN ROBITUSSIN GIVEN WELL. WILL CONTINUE TO MONITOR PT.
[2020-08-04] MEDS ORDERED: PANTOPRAZOLE 40 MG INJ VIAL ONE (21:13)
--- NOTE | 2020-08-04 21:14 | NUR ---
ONE TIME ORDER PROTONIX IV 40MG GIVEN ORDERED. WILL MONITOR PT.
--- NOTE | 2020-08-04 22:00 | NUR ---
LATEST TEMP 101.0, PRN TYLENOL GIVEN ORDERED. WILL CONTINUE TO MONITOR.
--- NOTE | 2020-08-04 22:55 | NUR ---
LATEST TEMP OF 97.3, WILL CONTINUE TO MONITOR. PT DENIES PAIN.
--- NOTE | 2020-08-04 23:00 | NUR ---
NO COMPLAINTS MADE THUS FAR. PT RESTING IN BED, WITH EYES CLOSED. WILL CONTINUE TO MONITOR PT.
[2020-08-05] VITALS (14 sets, daily range): BP systolic 96–146; BP diastolic 49–101
--- NOTE | 2020-08-05 02:00 | NUR ---
PT ENCOURAGED TO LAY ON HIS RIGHT SIDE, NO DISTRESS OBSERVED, WILL CONTINUE TO MONITOR.
[2020-08-05] MEDS: ALBUTEROL 0.083% 2.5 MG/3 ML NEBU INH SCH ×2 (02:25→07:00)
--- NOTE | 2020-08-05 04:30 | NUR ---
PT RESTING IN BED WITH NO DISTRESS OBSERVED. ABLE TO POSITION HIMSELF IN BED. WILL CONTINUE TO MONITOR.
[2020-08-05 05:49] LABS: BASOPHILS # (AUTO) 0.1 K/uL (0.00-0.22); BASOPHILS % (AUTO) 0.3 % (0.0-2.0); EOSINOPHILS # (AUTO) 0.9 K/uL (0-0.4); EOSINOPHILS % (AUTO) 3.8 % (0.0-4.0); HEMATOCRIT 34.9 % (36-52); HEMOGLOBIN 10.9 g/dL (12.0-18.0); LYMPHOCYTES % (AUTO) 4.3 % (20.5-51.1); MEAN CORPUSCULAR HEMOGLOBIN 21 pg (27-31); MEAN CORPUSCULAR HGB CONC 31 g/dL (33-37); MEAN CORPUSCULAR VOLUME 66.4 fL (80-94); MONOCYTES # (AUTO) 1.4 K/uL (0.8-1.0); MONOCYTES % (AUTO) 6.1 % (1.7-9.3); NEUTROPHILS # (AUTO) 19.9 K/uL (1.8-7.7); NEUTROPHILS % (AUTO) 85.5 % (42.2-75.2); PLATELET COUNT (AUTO) 364 K/uL (140-450); RED BLOOD CELL COUNT(AUTO) 5.25 MIL/uL (4.20-6.10); RED CELL DISTRIBUTION WIDTH 18.9 % (11.6-13.7); WHITE BLOOD COUNT (AUTO) 23.3 K/uL (4.8-10.8)
[2020-08-05 06:28] LABS: ALBUMIN 1.4 g/dL (3.4-5.0); ANION GAP 12.9 (8-16); CARBON DIOXIDE 26.2 mmol/L (21-32); CREATININE 0.8 mg/dL (0.6-1.3); MAGNESIUM 2.4 mg/dL (1.8-2.4); POTASSIUM 4.1 mmol/L (3.5-5.1); TOTAL BILIRUBIN 0.3 mg/dL (0.0-1.0)
--- NOTE | 2020-08-05 07:15 | NUR ---
RECEIVED REPORT FROM NIGHT RN FOR CONTINUITY OF CARE. CC: SOB AND COUGH X1 WEEK. ADMITTING DX: PNA. PATIENT ASLEEP IN BED. PT IS AMBULATORY. AOX4, HUNGARIAN SPEAKING. O2 SAT 98% ON 55L HIGH FLOW O2 NC, FIO2 100%, RESPIRATIONS ARE DEEP AND RAPID. OCCASIONAL COUGH. NO C/O PAIN. SKIN IS INTACT. CONTINENT BOWEL AND BLADDER. URINAL AND COMMODE AT BEDSIDE. IV SITE RIGHT HAND 22G SALINE LOCK. SAFETY MEASURES IN PLACE, CALL LIGHT WITHIN REACH. WILL CONTINUE TO MONITOR.
--- NOTE | 2020-08-05 08:12 | NUR ---
AWAKE AND ALERT PATIENT WITH BREAKFAST TRAY AT THIS TIME NO EVIDENCE OF DISTRESS NOTED PLATE AND WELD INSPECTOR TO ATTEMPT HHN THERAPY AT A LATER TIME DUE TO TACHYCARDIC STATUS HR +138 PLATE AND WELD INSPECTOR WILL CONSULT WITH DR. RACHEL MCMAHAN NOW IN ICU
[2020-08-05] MEDS: AZITHROMYCIN 250 MG TAB PO SCH (08:16)
[2020-08-05] MEDS: PANTOPRAZOLE 40 MG TABEC PO SCH (08:17)
[2020-08-05] MEDS: ACETAMINOPHEN 325 MG TAB PO PRN ×3 (08:17→20:12)
[2020-08-05] MEDS: metFORMIN 500 MG TAB PO SCH ×2 (08:17→20:12)
[2020-08-05] MEDS: ZINC SULF 220 MG CAP PO SCH ×2 (08:17→20:12)
[2020-08-05] MEDS: ASCORBIC ACID 500 MG TAB PO SCH (08:17)
[2020-08-05] MEDS: BENAZEPRIL 20 MG TAB PO SCH (08:18)
[2020-08-05] MEDS: amLODIPine 5 MG TAB PO SCH (08:18)
--- NOTE | 2020-08-05 08:20 | NUR ---
REVIEWED CARDIAC AND PULMONARY STATUS WITH DR. RACHEL MCMAHAN NEW ORDER: OK TO CHANGE RESPIRATORY DRUG TO XOPONEX 1.24mg WITH SAME FREQUENCY
[2020-08-05] MEDS: BLOOD GLUCOSE MONITORING 1 DEV DEV FS SCH ×2 (08:39→20:13)
[2020-08-05] MEDS: INSULIN LISPRO SLIDING SCALE 100 UNITS/ML VIAL SUBQ PRN (08:40)
[2020-08-05] MEDS: ENOXAPARIN 40 MG/0.4 ML SYR SUBQ SCH (08:40)
--- NOTE | 2020-08-05 08:45 | NUR ---
DUE MORNING MEDS GIVEN. BLOOD SUGAR 167. COVERAGE GIVEN. TEMP 101.4, COOLING MEASURES DONE, TYLENOL GIVEN ORDERED. WILL CONTINUE TO MONITOR
[2020-08-05] MEDS: VITAMIN D 400 IU TAB PO SCH (09:27)
--- NOTE | 2020-08-05 11:47 | NUR ---
PT RESTING IN BED. NO C/O PAIN, STILL ON 55L HIGH FLOW N/C, O2SAT 98%, TEMP 99.5
[2020-08-05] MEDS: LEVALBUTEROL 1.25 MG/0.5 ML NEBU INH SCH ×4 (12:00→22:56)
--- NOTE | 2020-08-05 14:17 | NUR ---
WITH TEMP OF 101.6. COOLING MEASURES RENDERED, ENCOURAGED TO DRINK MORE FLUIDS. TYLENOL GIVEN ORDERED. WILL CONTINUE TO MONITOR
--- NOTE | 2020-08-05 15:15 | NUR ---
TEMP 97.5. WILL CONTINUE TO MONITOR
--- NOTE | 2020-08-05 18:15 | NUR ---
TEMP 100.0, COOLING MEASURES RENDERED.
--- NOTE | 2020-08-05 19:30 | NUR ---
RECEIVED REPORT FROM DAY SHIFT, PT AAOX4 FOLLOWING COMMANDS SITTING UP IN BED. PT ST ON MONITOR 130-140S, PALPABLE PULSES, NO EDEMA NOTED. LUNGS DIMINISHED, ON HI FLOW O2 @ 100% VIA NASAL CANNULA, DENIES COUGH/CP/SOB @ THIS TIME. ABD SOFT ROUND NON DISTENDED, ACTIVE BOWEL SOUNDS. VOIDING, USING BEDSIDE COMMODE, LAST BM 08/04. DENIES N/V/D. SKIN WARM DRY PINK INTACT. IV TO R HAND NOTED. BED LOCKED IN LOWEST POSITION. SAFETY PRECAUTIONS IN PLACE. CALL LIGHT WITHIN REACH.
[2020-08-05] MEDS: guaiFENesin DM 200/20 MG-10 ML 10 ML UDC PO PRN (20:12)
[2020-08-05] MEDS: cefTRIAXone 2,000 MG in DEXTROSE 5% 100 ML IV SCH (20:13)
[2020-08-05] MEDS: LORazepam 2 MG/ML VIAL IM/IVP PRN (20:14)
--- NOTE | 2020-08-05 21:30 | NUR ---
PT INSTRUCTED TO TURN AND REPOSITION, MEDS ADMINISTERED ORDERED. WILL CONTINUE TO OBSERVE.
--- NOTE | 2020-08-05 23:05 | NUR ---
RT @ BEDSIDE; INSTRUCTING PT TO TURN AND PRONE. PT WAS DESATURATING TO 78-80% WHILE SUPINE. PT NOW 95-97% PRONE/ON SIDE. WILL CONTINUE TO OBSERVE.
[2020-08-06] VITALS (19 sets, daily range): BP systolic 112–154; BP diastolic 44–89
--- NOTE | 2020-08-06 00:48 | NUR ---
PT HAS EYES CLOSED, AROUSABLE, 98% ON HI FLOW NASAL CANNULA, FLACC 0 WILL CONTINUE TO OBSERVE.
[2020-08-06] MEDS: ACETAMINOPHEN 325 MG TAB PO PRN ×5 (02:09→23:49)
[2020-08-06] MEDS: LEVALBUTEROL 1.25 MG/0.5 ML NEBU INH SCH ×6 (03:00→23:59)
--- NOTE | 2020-08-06 03:34 | NUR ---
PT ASSISTED WITH BATH, LINEN CHANGED. PT ENCOURAGED TO TURN AND REPOSITION. WILL CONTINUE TO OBSERVE.
--- NOTE | 2020-08-06 04:18 | NUR ---
PT HAS EYES CLOSED; AROUSABLE, DENIES PAIN @ THIS TIME. WILL CONTINUE TO OBSERVE.
[2020-08-06 05:39] LABS: BASOPHILS # (AUTO) 0.2 K/uL (0.00-0.22); BASOPHILS % (AUTO) 0.7 % (0.0-2.0); EOSINOPHILS # (AUTO) 1.1 K/uL (0-0.4); EOSINOPHILS % (AUTO) 4.6 % (0.0-4.0); HEMATOCRIT 33.6 % (36-52); HEMOGLOBIN 10.7 g/dL (12.0-18.0); LYMPHOCYTES # (AUTO) 0.8 K/uL (2.0-11.5); LYMPHOCYTES % (AUTO) 3.3 % (20.5-51.1); MEAN CORPUSCULAR HEMOGLOBIN 21 pg (27-31); MEAN CORPUSCULAR HGB CONC 32 g/dL (33-37); MEAN CORPUSCULAR VOLUME 65.3 fL (80-94); MONOCYTES # (AUTO) 0.9 K/uL (0.8-1.0); MONOCYTES % (AUTO) 3.8 % (1.7-9.3); NEUTROPHILS # (AUTO) 20.3 K/uL (1.8-7.7); NEUTROPHILS % (AUTO) 87.6 % (42.2-75.2); PLATELET COUNT (AUTO) 413 K/uL (140-450); RED BLOOD CELL COUNT(AUTO) 5.15 MIL/uL (4.20-6.10); RED CELL DISTRIBUTION WIDTH 18.7 % (11.6-13.7); WHITE BLOOD COUNT (AUTO) 23.2 K/uL (4.8-10.8)
[2020-08-06 06:05] LABS: ANION GAP 12.3 (8-16); CARBON DIOXIDE 26.5 mmol/L (21-32); CREATININE 0.7 mg/dL (0.6-1.3); POTASSIUM 3.8 mmol/L (3.5-5.1)
[2020-08-06 06:36] LABS: MAGNESIUM 2.4 mg/dL (1.8-2.4); PHOSPHORUS 3.6 mg/dL (2.5-4.9)
--- NOTE | 2020-08-06 07:05 | NUR ---
PT NOTED TO BE WITH O2 SAT 88-89 WITH HIGH FLOW 100% + NON REBREATHER MASK OVER IT, RESP LABORED, PT APPEARS ANXIOUS, PT ASSISTED INTO PRONE POSITION WITH GREAT DIFFICULTIES, PT DIDN'T WANT TO CHANGE POSITIONS, EDUCATION PROVIDED, PT AGREED TO PRONE.
--- NOTE | 2020-08-06 07:27 | NUR ---
REPORT GIVEN TO DAY SHIFT FOR CONTINUITY CARE
--- NOTE | 2020-08-06 07:29 | NUR ---
RECEIVED BEDSIDE REPORT FROM MIX CHEMIST NURSE DIPTI FOR CONTINUITY OF CARE. PATIENT IS LYING ON PRONE POSITION COMFORTABLY, AROUSABLE TO VOICE, ABLE TO FOLLOW SIMPLE COMMAND, AND MAKE NEED KNOWN, SPEAK IRANIAN, AND ABLE TO UNDERSTAND SOME BHUTANESE. PATIENT IS ON HIGH FLOW OXYGEN AND NONREBREATHER, SPO2 AT 95%, LUNG SOUNDS DIMINISHED ON AUSCULTATION, SINUS TACHYCARDIAC ON MONITOR, 130-136 BPM. DENIED PAIN, SOB AND ANY DISCOMFORT AT THIS TIME. IV ON LFA 20G, CLEAN AND INTACT, SALINE LOCK. SKIN CLEAN AND DRY, ABDOMEN SOFT AND ROUND, BOWEL SOUNDS ACTIVE. PATIENT IS CONTINENT AND ABLE TO USE URINAL AND BEDSIDE COMMODE. FIRE EQUIPMENT OPERATOR IN PLACE. SAFETY MEASURES IN PLACE. ENHANCED DROPLET PRECAUTION IN PLACE. BED IN LOW POSITION, CALL LIGHT WITHIN REACH, AND BED LOCKED. INSTRUCTED PATIENT TO USE THE CALL LIGHT FOR ANY ASSISTANCE AND PATIENT AWARE.
--- NOTE | 2020-08-06 07:59 | NUR ---
RECEIVED ON A HIGH FLOW WITH SETTINGS NOTED PLUGGED INTO RED OUTLET TOLERATING WELL TO A HIGH FLOW NASAL CANNULA WITH HEATED CIRCUIT PLUS A NON REBREATHER AT 15 LPM LOC ASLEEP EASILY AWAKENS RESTING WELL TACHYPNEIC AT 40 BPM GOOD CHEST RISE PRONE PATIENT SWITCHED TO RIGHT SIDE
[2020-08-06] MEDS: AZITHROMYCIN 250 MG TAB PO SCH (08:02)
[2020-08-06] MEDS: guaiFENesin DM 200/20 MG-10 ML 10 ML UDC PO PRN (08:02)
[2020-08-06] MEDS: LORazepam 2 MG/ML VIAL IM/IVP PRN (08:02)
[2020-08-06] MEDS: metFORMIN 500 MG TAB PO SCH ×2 (08:03→20:03)
[2020-08-06] MEDS: ENOXAPARIN 40 MG/0.4 ML SYR SUBQ SCH (08:03)
--- NOTE | 2020-08-06 08:05 | NUR ---
TYLENOL GIVEN FOR FEVER 101.0, ATIVAN GIVEN FOR ANXIETY, OTHER AM MEDS GIVEN, PT MARTHA PILLS WHOLE, TAKING WATER WELL WITHOUT PROBLEM. PT TURNED TO R SIDED ALVARADO POSITION.
--- NOTE | 2020-08-06 08:50 | NUR ---
ROSEMARY CALLED FOR PT UPDATE, TELEPHONE TAKEN INTO ROOM FOR PT TO SPEAK TO HER WITH SPEAKER PHONE.
[2020-08-06] MEDS: BLOOD GLUCOSE MONITORING 1 DEV DEV FS SCH ×2 (08:54→20:14)
[2020-08-06] MEDS: VITAMIN D 400 IU TAB PO SCH (08:58)
--- NOTE | 2020-08-06 09:05 | NUR ---
PT RESTING ON HIS RIGHT SIDE WITH EYES CLOSED, TEMP DECREASED TO 98.8.
[2020-08-06] MEDS: PANTOPRAZOLE 40 MG INJ VIAL IVP SCH (09:30)
[2020-08-06] MEDS: ASCORBIC ACID 500 MG TAB PO SCH (09:30)
[2020-08-06] MEDS: BENAZEPRIL 20 MG TAB PO SCH (09:31)
[2020-08-06] MEDS: amLODIPine 5 MG TAB PO SCH (09:31)
--- NOTE | 2020-08-06 10:21 | NUR ---
ASSISTED PATIENT TO LYING ON HIS STOMACH, PATIENT TOLERATED FAIR, SPO2 AT 95% ON HIGH FLOW AND NONREBREATHER. TEMPERATURE 97.8 TEMPORALLY. PATIENT IS RESTING WITH BOTH EYES CLOSED. CORRECTIONAL OFFICER SERGEANT IN PLACE. SAFETY MEASURES IN PLACE. BED IN LOW POSITION, CALL LIGHT WITHIN REACH. INSTRUCTED PATIENT TO USE THE CALL LIGHT FOR ANY ASSISTANCE AND PATIENT AWARE.
--- NOTE | 2020-08-06 11:40 | NUR ---
RESTING COMFORTABLY ON RIGHT SIDE GOOD CHEST RISE STRONG NON PRODUCTIVE COUGH DURING HHN THERAPY HIGH FLOW ON AND FUNCTIONING WELL FIO2 100% FLOW 40 L PLUS NON REBREATHER 100% AT 15 LPM
--- NOTE | 2020-08-06 12:04 | NUR ---
RECEIVED A CALL FROM ROSEMARY, UNDATED ROSEMARY WITH PATIENT'S CURRENT CONDITION AND ROSEMARY WAS AWARE.
--- NOTE | 2020-08-06 12:10 | NUR ---
DR VASYL Burgess IS ROUNDING ON PATIENT.
--- NOTE | 2020-08-06 12:20 | NUR ---
PT RESTING ON HIS SIDE, RESP EVEN LESS LABORED THAN BEFORE, PT DENIES PAIN, OFFERED TO ASSIST WITH LUNCH TRAY, PT REFUSES TO SIT UP TO EAT NOW, STATES "MAYBE LATER", MARTHA 2/3 OF GLUCERNA FOR NOW. WILL ATTEMPT AT LATER TIME.
--- NOTE | 2020-08-06 14:10 | NUR ---
INCREASED HR 132, SKIN HOT TO TOUCH, TEMP 100.8 TEMP, TYLENOL GIVEN PER PRN ORDER.
--- NOTE | 2020-08-06 16:13 | NUR ---
ASSISTED PATIENT TO TURN AND LYING ON HIS STOMACH, PILLOWS PLACED UNDER STOMACH AND LEGS TO PROVIDED COMFORT. PATIENT IS RESTING ON BED ON PRONE POSITION. CAPACITOR ASSEMBLER IN PLACE. SAFETY MEASURES IN PLACE. BED IN LOW POSITION AND CALL LIGHT WITHIN REACH.
--- NOTE | 2020-08-06 17:12 | NUR ---
DR MCMAHAN IS ASSESSING AND TALKING TO PATIENT AT BEDSIDE.
--- NOTE | 2020-08-06 17:45 | NUR ---
SATURATION 96% ON HIGH FLOW WITH FIO2 AT 100% AND FLOW AT 40 LPM TITRATED FIO2 TO 95% MALICK/RN NOTIFIED
--- NOTE | 2020-08-06 18:12 | NUR ---
TEMPERATURE CHECKED AND RECEIVED 100.4 TEMPORALLY, PATIENT COMPLAINED OF CHILL. MEDICATED WITH TYLENOL AND APPLIED COOLING MEASURES. REPOSITIONED PATIENT, PATIENT IS LYING ON PRONE POSITION COMFORTABLY WITH PILLOWS ON STOMACH AND LEGS. TOOL AND PRODUCTION PLANNER IN PLACE. SAFETY MEASURES IN PLACE.
--- NOTE | 2020-08-06 18:16 | NUR ---
DR PINTO NOTIFIED OF TEMPERATURE SPIKE AGAIN, OK TO GIVE TYLENOL NOW (4HRS FROM LAST DOSE), TELEPHONE ORDER RECEIVED FOR IVF NS 100ML/HR, ZOSYN 3.375G IVPB Q6HRS, REPEAT URINE/BLOOD/SPUTUM CULTURE.
--- NOTE | 2020-08-06 18:38 | NUR ---
STARTED IVF PER MD ORDER. PHARMACY AFTER HOUR OVERRIDE.
[2020-08-06] MEDS: NACL 0.9% 1,000 ML IV SCH (18:50)
--- NOTE | 2020-08-06 18:51 | NUR ---
REASSESSED TEMPERATURE AND RECEIVED 99.1 TEMPORALLY. EXPLAINED TO PATIENT, URINE NEEDED, PROVIDED SPECIMEN CUP, PATIENT SAID OK. WILL ENDORSE TO ONCOMING SHIFT NURSE. PATIENT IS LYING ON BED. NO SIGNS OF ACUTE DISTRESS NOTED. ECOLOGICAL RISK ASSESSOR IN PLACE. SAFETY MEASURES IN PLACE.
--- NOTE | 2020-08-06 19:16 | NUR ---
ENDORSED PATIENT AT BEDSIDE FOR SENIOR PRODUCT ANALYST NURSES TO CONTINUITY OF CARE. PATIENT IS STABLE CONDITION.
--- NOTE | 2020-08-06 20:00 | NUR ---
REPORT RECEIVED FROM DAY SHIFT RN. PT IS ALERT AND ORIENTED, ABLE TO MAKE NEEDS KNOWN TO STAFF. PT ON HIGH FLOW @ 30L WITH 100% FIO2, NRB MASK @ 15L. RESPIRATIONS ARE EVEN BUT LABORED. WHEEZING HEARD UPON AUSCULTATION. ABDOMEN LARGE, SOFT, NON TENDER. PT IS CONTINENT OF BOTH BLADDER AND BOWEL. ABLE TO USE URINAL AND BEDSIDE COMMODE. SKIN WARM, DRY AND INTACT. PT IS AFEBRILE. BED IN LOWEST POSITION, HOB 30 DEGREES, SIDE RAILS UP. ALL SAFETY MEASURES IN PLACE. WILL CONTINUE TO MONITOR PT. Addendum: 08/06/20 at 2107 by Jonathan Osborne RN PERIPHERAL ACCESSES ON THE LEFT FOREARM G22 AND G20. ASYMPTOMATIC , PATENT AND INTACT.
[2020-08-06] MEDS: cefTRIAXone 2,000 MG in DEXTROSE 5% 100 ML IV SCH (20:17)
--- NOTE | 2020-08-06 20:17 | NUR ---
ROCEPHIN HUNG AND INFUSING @ 100ML/HR. WILL CONTINUE TO MONITOR PT.
[2020-08-06] MEDS ORDERED: PIPERACILLIN/TAZOBACTAM 3.375 GM VIAL IV ONE (20:34)
[2020-08-06] MEDS: PIPERACILLIN/TAZOBACTAM 3.375 GM in DEXTROSE 5% 50 ML IV SCH (20:59)
--- NOTE | 2020-08-06 20:59 | NUR ---
GIOSYN HUNG AND INFUSING AT THIS TIME.
--- NOTE | 2020-08-06 22:00 | NUR ---
DR. CHATMAN IN THE UNIT, UPDATED ON PTS PRESENT CONDITION. MADE AWARE COVID TESTS RESULT STILL NEGATIVE AND URINE/SPUTUM SPECIMEN SENT FOR LEGIONELLA CULTURE TO LAB ,AWATING RESULT.TO KEEP PT ON DROPLET PRECAUTION FOR NOW
--- NOTE | 2020-08-06 23:49 | NUR ---
PT'S TEMP: 102.1, PRN TYLENOL GIVEN ORDERED.
[2020-08-07] VITALS (34 sets, daily range): BP systolic 83–186; BP diastolic 33–101
[2020-08-07] MEDS: LORazepam 2 MG/ML VIAL IM/IVP PRN ×2 (00:14→15:15)
--- NOTE | 2020-08-07 00:19 | NUR ---
PT FEELING ANXIOUS. ATIVAN GIVEN ORDERED. WILL CONTINUE TO MONITOR.
--- NOTE | 2020-08-07 00:30 | NUR ---
COOLING BLANKET PROVIDED. PT DENIES PAIN. TURNED AND REPOSITIONED PT. WILL CONTINUE TO MONITOR.
[2020-08-07] MEDS ORDERED: PIPERACILLIN/TAZOBACTAM 3.375 GM VIAL IV ONE ×2 (01:14→05:15)
[2020-08-07] MEDS: LEVALBUTEROL 1.25 MG/0.5 ML NEBU INH SCH ×6 (02:00→22:39)
--- NOTE | 2020-08-07 02:00 | NUR ---
LATEST TEMP OF 99.7, PT IN NO DISTRESS OBSERVED. WILL CONTINUE TO MONITOR PT.
[2020-08-07] MEDS: NACL 0.9% 1,000 ML IV SCH ×2 (04:20→14:30)
[2020-08-07 05:35] LABS: HEMATOCRIT 33.3 % (36-52); HEMOGLOBIN 10.6 g/dL (12.0-18.0); MEAN CORPUSCULAR HEMOGLOBIN 21 pg (27-31); MEAN CORPUSCULAR HGB CONC 32 g/dL (33-37); MEAN CORPUSCULAR VOLUME 65.1 fL (80-94); PLATELET COUNT (AUTO) 500 K/uL (140-450); RED BLOOD CELL COUNT(AUTO) 5.12 MIL/uL (4.20-6.10); RED CELL DISTRIBUTION WIDTH 18.9 % (11.6-13.7)
[2020-08-07 06:04] LABS: CREATININE 0.7 mg/dL (0.6-1.3)
[2020-08-07 06:09] LABS: MAGNESIUM 2.3 mg/dL (1.8-2.4); PHOSPHORUS 4.2 mg/dL (2.5-4.9)
[2020-08-07] MEDS: PIPERACILLIN/TAZOBACTAM 3.375 GM in DEXTROSE 5% 50 ML IV SCH ×6 (06:15→23:43)
--- NOTE | 2020-08-07 06:15 | NUR ---
TEMP: 101.1, TYLENOL GIVEN ORDERED. WILL CONTINUE TO MONITOR. Addendum: 08/07/20 at 0629 by Jonathan Osborne RN COOLING BLANKET IN PLACE.
[2020-08-07] MEDS: ACETAMINOPHEN 325 MG TAB PO PRN ×3 (06:16→16:52)
[2020-08-07 06:33] LABS: WHITE BLOOD COUNT (AUTO) 28.9 K/uL (4.8-10.8)
--- NOTE | 2020-08-07 07:25 | NUR ---
RECEIVED PT FROM THREAD SEPARATOR, PT LYING IN RIGHT SIDED POSITION, NO DISTRESS NOTED, RESPIRATIONS EVEN AND UNLABORED ON HIGH FLOW 30L AND NONREBREATHER MASK AT 15L O2 SAT 96%. IV PATENT AND ASYMPTOMATIC INFUSING PER ORDER IN L FA 22G AND L FA20G. DROPLET PRECAUTIONS IN PLACE. SKIN INTACT. TEMP 101.[address]. TYLENOL GIVEN BY THREAD SEPARATOR. SINUS TACHY ON MONITOR. PT IS INCONTINENT. SAFETY MEASURES IN PLACE, BED IN LOW POSITION, CALL LIGHT WITHIN REACH. WILL MONITOR CLOSELY.
--- NOTE | 2020-08-07 07:27 | NUR ---
RECEIVED ON A HIGH FLOW AT 100% WITH FLOW AT 40 LPM (STERILE WATER + TUBING CHECKED) PLUS NON REBREATHER AT15 LPM SATURATION 95% POST HHN THERAPY TITRATED NON REBREATHER TO A PARTIAL REBREATHER DEMOGRAPHIC ANALYST TO MONITOR WANDY/DHAVAL NOTIFIED Addendum: 08/07/20 at 1243 by Yo Adams RT (LATE ENTRY) STRONG NPC DURING HHN THERAPY
[2020-08-07 07:53] LABS: EOSINOPHILS % (MANUAL) 3 % (0-4); LYMPHOCYTES % (MANUAL) 5 % (20-46); MONOCYTES % (MANUAL) 4 % (5-12)
[2020-08-07] MEDS: ENOXAPARIN 40 MG/0.4 ML SYR SUBQ SCH (08:28)
[2020-08-07] MEDS: metFORMIN 500 MG TAB PO SCH ×2 (08:30→21:00)
[2020-08-07] MEDS: PANTOPRAZOLE 40 MG INJ VIAL IVP SCH (08:30)
[2020-08-07] MEDS: amLODIPine 5 MG TAB PO SCH (08:31)
[2020-08-07] MEDS: AZITHROMYCIN 250 MG TAB PO SCH (08:31)
[2020-08-07] MEDS: BENAZEPRIL 20 MG TAB PO SCH (08:31)
[2020-08-07] MEDS: BLOOD GLUCOSE MONITORING 1 DEV DEV FS SCH ×2 (08:32→21:59)
--- NOTE | 2020-08-07 08:58 | NUR ---
MEDICATIONS ADMINISTERED PER ORDER. PT TOLERATED WELL. PT ASSISTED IN EATING BREAKFAST, TOLERATED WELL. AFTER EATING PT SHOWED MILD RESPIRATORY DISTRESS. PLACED BACK ON NON REBREATHER MASK. BREATHING IMPROVED. PT RESTING HOB 30 DEG. WILL CONTINUE TO MONITOR.
--- NOTE | 2020-08-07 10:52 | NUR ---
PTS CAME TO FRONT LOBBY, GAVE HER MONITOR SHOWING PT SO SHE COULD SEE HIM. UPDATED HER ON PTS CONDITION. ASSISTED PT IN GIVING HIM HIS CELL PHONE SO THEY COULD TALK.
--- NOTE | 2020-08-07 11:25 | NUR ---
TYENOL GIVEN FOR TEMP 101.6, PT REMAINS ON COOLING BLANKET, PT MARTHA PILLS WHOLE, PT REPORTS FEELING URGE TO POOP, PLACED ON BEDPAN.
--- NOTE | 2020-08-07 11:55 | NUR ---
ASLEEP RESTING WELL GOOD CHEST RISE SATURATION 86% ON HIGH FLOW OF 100% WITH FLOW AT 40 LPM (STERILE WATER + TUBING CHECKED) PLUS PARTIAL REBREATHER AT 15 LPM POST HHN THERAPY CHANGED OXYGEN DEVICE TO NON REBREATHER AT 15 LPM UNIT SECRETARY TO MONITOR WANDY MCGUIREIED Addendum: 08/07/20 at 1252 by Yo Adams RT WANDY/DHAVAL Addendum: 08/07/20 at 1252 by Yo Adams RT INCREASED FLOW TO 45 LPM
--- NOTE | 2020-08-07 12:40 | NUR ---
DR RAUSCH AT BEDSIDE, OK TO USE BIPAP IF PT CONDITION GETS WORSE. CXR AND CHEST US ORDERED.
--- NOTE | 2020-08-07 12:48 | NUR ---
PT HAD LARGE BM, CLEANED UP AND REPOSITIONED. OFFERED LUNCH, PT REFUSED. O2 SAT 96%, RESPIRATIONS EVEN AND LABORED. SAFETY MEASURES IN PLACE. WILL CONTINUE TO MONITOR.
[2020-08-07] MEDS ORDERED: ETOMIDATE 20 MG/10 ML VIAL IVP ONE (14:00)
[2020-08-07] MEDS ORDERED: SUCCINYLCHOLINE CHLORIDE 200 MG/10 ML VIAL IVP ONE (14:00)
--- NOTE | 2020-08-07 14:50 | NUR ---
PT HR INCREASED TO 140-150 IRREGULAR, POSSIBLE AFIB ON MONITOR, 12LD EKG ORDERED PER PROTOCOL.
[2020-08-07] MEDS ORDERED: DILTIAZEM 125 MG in DEXTROSE 5% 100 ML IV SCH (15:05)
--- NOTE | 2020-08-07 15:25 | NUR ---
HHN THERAPY AND RESPIRATORY DRUG DUE TO HR +150'S
--- NOTE | 2020-08-07 15:25 | NUR ---
NOTIFIED DR FALLON THAT PTS HEART RATE INCREASED TO 150 AND EKG SHOWS A FIB. RECEIVED ORDER FOR CARDILEANNE JOINER.
--- NOTE | 2020-08-07 15:35 | NUR ---
DR RAUSCH PAGED AND CALLED BACK, REPORTED ON PT CONDITION, WITH INCREASED WORK OF BREATHING, TACHYPNEA, AFIBRVR STARTED ON CARDIZEM DRIP, HR 150, BP 123/75, RR 41, O2SAT 90% WITH HIGH FLOW AND NRB MASK, CXR/US RESULTS REPORTED, ORDERS RECEIVED TO PLACE PT ON BIPAP AND CHECK ABG, RT ELIZABETH NOTIFIED.
--- NOTE | 2020-08-07 15:56 | NUR ---
PAGED DR. JACKIE RAUSCH TO REVIEW [facility] SAMPLE REPORT CALL BACK NUMBER [phone]
--- NOTE | 2020-08-07 15:58 | NUR ---
CALL BACK FROM DR. JACKIE RAUSCH REVIEWED ABG SAMPLE REPORT NEW ORDER: GO BY DIAGNOSTIC (MONITOR) SATURATION; PLACED ON BIPAP TO MASK KNOWLEDGE ARCHITECT TO DETERMINE SETTINGS BASED ON IBW
--- NOTE | 2020-08-07 16:42 | NUR ---
DR Aditya FALLON PAGED AND CALLED BACK, REPORTED THAT CARDIZEM DRIP HAS BEEN INFUSING FOR 1HR WITHOUT IMPROVEMENT OF AFIB RVR, HR 154, BP 127/56, ORDER RECEIVED FOR DIGIOXIN 0.5MG IVPX1.
[2020-08-07] MEDS ORDERED: DIGOXIN 0.25 MG/ML AMP IV SCH (16:45)
--- NOTE | 2020-08-07 17:26 | NUR ---
DR RAUSCH CALLED FOR PT CONDITION UPDATE, ORDER RECIEVED TO HAVE ER DOCTOR INTUBATE, RT AND ER NOTIFIED.
--- NOTE | 2020-08-07 17:42 | NUR ---
ROSEMARY NOTIFIED OF PT CONDITION CHANGE AND PLAN TO INTUBATE
--- NOTE | 2020-08-07 17:45 | NUR ---
DR. MONTANO, RTs AND PRIMARY NURSE AT BEDSIDE FOR INTUBATION
[2020-08-07] MEDS ORDERED: PROPOFOL 1000 MG/100 ML PREMIX 100 ML IV ONE (17:48)
--- NOTE | 2020-08-07 17:48 | NUR ---
ETOMIDATE 15MG GIVEN IVP ORDERED. FLUSHED WITH SALINE
--- NOTE | 2020-08-07 17:50 | NUR ---
SUCCINYLCHOLINE 120MG GIVEN IVP ORDERED. FLUSHED WITH SALINE
--- NOTE | 2020-08-07 18:00 | NUR ---
DR. JACKIE PATEL AT BEDSIDE FOR INTUBATION GLIDESCOPE USED PATIENT SUCCESSFULLY INTUBATED CONFIRMED BY CO2 INDICATOR TURNING YELLOW BILATERAL LUNGS CONFIRMED BY AUSCULTATION BY FOREMENTIONED
--- NOTE | 2020-08-07 18:00 | NUR ---
PT INTUBATED. CAPNOGRAPHY WITH COLOR CHANGE. ETT SIZE [address] PL[address] 25CM AT THE TEETH. ETT TO VENT. VENT SETTINGS: FIO2 100% RATE 16 TV 500 PEEP 8
--- NOTE | 2020-08-07 18:08 | NUR ---
PATIENT PLACED ON A BraingazeSCAPE R860 PLUGGED INTO RED OUTLET TO AN ENDOTRACHEAL TUBE #8.0 SECURED WITH ANCHOR FAST AT 25cm TEETH/GUM LINE RADIOLOGY CALLED FOR CXR
[2020-08-07] MEDS: PROPOFOL 1000 MG/100 ML PREMIX 100 ML IV PRN ×2 (18:10→22:14)
--- NOTE | 2020-08-07 18:15 | NUR ---
NGT INSERTED AT THIS TIME, PLACEMENT VERIFIED BY AUSCULTATION. WILL ORDER CHEST XRAY FOR PLACEMENT VERIFICATION.
[2020-08-07] MEDS ORDERED: VANCOMYCIN PER PHARMACY MC PRN (19:55)
--- NOTE | 2020-08-07 20:00 | NUR ---
RECEIVED PATIENT REPORT FROM DAY SHIFT RN. PATIENT WAS INTUBATED AT 1800. ETT, ACVC FIO2 AT 100%, TV 500, RATE 16, PEEP 8. RAAS -3. DRY WEIGHT 88KG. NG TUBE INSERTED RIGHT NARE, PER XRY RESULT, ADVANCED A LITTLE FURTHER, CHECKED PLACEMENT. HYPOACTIVE BS, LARGE, ROUND AND SOFT ABDOMEN. ALBERT CATHETER 16 FR PLACED, URINE FLASHBACK NOTED, PATENT AND DRAINING TO GRAVITY, CLEAN DRY AND INTACT. PERIPHERAL INTRAVENOUS ACCESS TO RIGHT FOREARM 22g AND RIGHT FOREARM 20g, BOTH PATENT, NO REDNESS, EDEMA OR INFILTRATION NOTED. NS @100ML/HR AND PROPOFOL 30 mcg/kg/min (15.84 ML/HR). SKIN WARM, CLEAN AND DRY. BED IN LOW POSITION AND LOCKED. SAFETY RAILS UP AND ALL SAFETY PRECAUTIONS IN PLACE.
--- NOTE | 2020-08-07 20:25 | NUR ---
DR CHATMAN IN UNIT, UPDATED WITH PATIENT CONDITION.
[2020-08-07] MEDS: LEVOFLOXACIN 750 MG/D5W PREMIX 150 ML IV SCH (20:30)
--- NOTE | 2020-08-07 20:30 | NUR ---
RT AT BEDSIDE, INCREASED PEEP TO 15. PATIENT SAT IN 80s.
[2020-08-07] MEDS ORDERED: VANCOMYCIN HCL 1.25 GM in DEXTROSE 5% 250 ML IV ONE (21:00)
--- NOTE | 2020-08-07 21:00 | NUR ---
METFORMIN NOT GIVEN DUE TO PATIENT INTUBATED. BG 174, NO INSULIN COVERAGE DUE TO PATIENT IS NPO. WILL CONTINUE TO MONITOR.
[2020-08-07] MEDS ORDERED: fentaNYL citrate 0.05 MG/ML VIAL ONE ×2 (21:26→21:29)
[2020-08-07] MEDS ORDERED: VANCOMYCIN 1,000 MG VIAL ONE (21:39)
[2020-08-07] MEDS ORDERED: VANCOMYCIN 500 MG VIAL ONE (21:39)
[2020-08-07] MEDS: fentaNYL citrate 1 MG in NACL 0.9% 80 ML IV PRN (22:16)
--- NOTE | 2020-08-07 23:44 | NUR ---
ZOSYN HUNG AND INFUSING AT THIS TIME. PT LATEST VITALS: BP: 102/50, HR 111, RR: 33, O2SAT- 93%. PT SEDATED RASS -3. WILL CONTINUE TO MONITOR PT.
[2020-08-08] VITALS (101 sets, daily range): BP systolic 66–142; BP diastolic 5–109
[2020-08-08] MEDS: NACL 0.9% 1,000 ML IV SCH ×2 (00:30→09:30)
--- NOTE | 2020-08-08 01:08 | NUR ---
PRESSURE AREAS OFF LOADED, TURNED AND REPOSITIONED. WILL CONTINUE TO MONITOR.
[2020-08-08] MEDS: LEVALBUTEROL 1.25 MG/0.5 ML NEBU INH SCH ×6 (03:52→23:20)
[2020-08-08] MEDS: PROPOFOL 1000 MG/100 ML PREMIX 100 ML IV PRN ×4 (04:20→20:54)
--- NOTE | 2020-08-08 04:20 | NUR ---
PAGED DR. RAUSCH AT THIS TIME. PT SATURATION ON THE 60'S. RT AWARE. PT ON A/C VC FIO2 100%, TV 500, RATE 16, PEEP 15. AWAITING FOR A RETURN CALL FROM .
--- NOTE | 2020-08-08 04:35 | NUR ---
SPOKE TO DR. CARDENAS, GAVE ORDER TO PRONE PT, ORDERED ABG, GIVE VECURONIUM 100MCG/KG AND TO FOLLOW DRIP PROTOCOL
--- NOTE | 2020-08-08 04:40 | NUR ---
PT PLACED IN PRONE POSITION PER MD'S DOCTOR. PT SATTING NOW AT 90'S. WILL CONTINUE TO MONITOR.
[2020-08-08] MEDS ORDERED: ED NON STOCK ORDER 1 EA MISC IV SCH (05:30)
[2020-08-08 05:33] LABS: HEMATOCRIT 35.3 % (36-52); HEMOGLOBIN 10.7 g/dL (12.0-18.0); MEAN CORPUSCULAR HEMOGLOBIN 20 pg (27-31); MEAN CORPUSCULAR HGB CONC 30 g/dL (33-37); PLATELET COUNT (AUTO) 597 K/uL (140-450); RED BLOOD CELL COUNT(AUTO) 5.27 MIL/uL (4.20-6.10); RED CELL DISTRIBUTION WIDTH 19.2 % (11.6-13.7)
--- NOTE | 2020-08-08 05:50 | NUR ---
SPOKE TO DR. CARDENAS, UPDATED ABOUT LATEST PT'S LATEST ABG RESULT. DISCONTINUE THE VECURONIUM ORDER. TO PRONE PT FOR 18 HRS AND SUPINE FOR 6 HRS.
[2020-08-08] MEDS ORDERED: VECURONIUM 20 MG in NACL 0.9% 100 ML IV SCH (06:00)
[2020-08-08 06:01] LABS: ANION GAP 17.1 (8-16); CARBON DIOXIDE 26.2 mmol/L (21-32); POTASSIUM 4.3 mmol/L (3.5-5.1)
[2020-08-08] MEDS ORDERED: fentaNYL citrate 0.05 MG/ML VIAL ONE ×2 (06:05→06:14)
[2020-08-08 06:06] LABS: MAGNESIUM 2.4 mg/dL (1.8-2.4); PHOSPHORUS 5.9 mg/dL (2.5-4.9)
--- NOTE | 2020-08-08 06:06 | NUR ---
RECEIVED PATIENT ON VENT SEE RT NOTES FOR SETTINGS. ETT TUBE SECURE AND PULLED OUT TO 24CM AT THE LIP LINE PER ER DOCTOR. TUBE IS IN POSITION 4CM ABOVE THE KERRI. PATIENT ON 100% FIO2. ABG DONE AND RESULTS REPORTED TO DOCTOR. PEEP INCREASED TO 14 DUE TO PATIENT BEING HYPOXIC. ABG DONE AGAIN IN THE AM AND RESULTS GIVEN TO RN. PATIENT PRONED PER DOCTOR SHALOM. PATIENT SATURATION IMPROVED AFTER PRONING. TUBE IS SECURE AND AIRWAY IS PATENT. PATIENT WILL BE MONITORED FURTHER AND ADDITIONAL ABG WILL BE DONE. REPORT GIVEN TO AM SHIFT RT.
[2020-08-08] MEDS: fentaNYL citrate 1 MG in NACL 0.9% 80 ML IV PRN (06:22)
[2020-08-08] MEDS: PIPERACILLIN/TAZOBACTAM 3.375 GM in DEXTROSE 5% 50 ML IV SCH ×3 (06:24→19:53)
--- NOTE | 2020-08-08 07:00 | NUR ---
SPOKE TO DR. RAUSCH, UPDATED ABOUT PT CONDITION. MADE AWARE ABOUT DR. CARDENAS'S NEW ORDERS. TO REPEAT ABG AT 9AM TODAY.
[2020-08-08 07:12] LABS: WHITE BLOOD COUNT (AUTO) 34.1 K/uL (4.8-10.8)
[2020-08-08 07:13] LABS: EOSINOPHILS % (MANUAL) 9 % (0-4); LYMPHOCYTES % (MANUAL) 2 % (20-46); MONOCYTES % (MANUAL) 2 % (5-12)
--- NOTE | 2020-08-08 07:20 | NUR ---
ENDORSED PT TO DAY SHIFT RN FOR CONTINUITY OF CARE.
[2020-08-08] MEDS: metFORMIN 500 MG TAB PO SCH ×2 (07:38→23:37)
[2020-08-08] MEDS: amLODIPine 5 MG TAB PO SCH (08:17)
[2020-08-08] MEDS: BENAZEPRIL 20 MG TAB PO SCH (08:17)
[2020-08-08] MEDS: NOREPINEPHRINE 4 MG in DEXTROSE 5% 250 ML IV PRN ×2 (09:05→16:15)
[2020-08-08] MEDS: VANCOMYCIN 1,000 MG in DEXTROSE 5% 250 ML IV SCH ×2 (10:00→22:42)
[2020-08-08] MEDS: ENOXAPARIN 40 MG/0.4 ML SYR SUBQ SCH (10:00)
[2020-08-08] MEDS: PANTOPRAZOLE 40 MG INJ VIAL IVP SCH (10:00)
[2020-08-08] MEDS: BLOOD GLUCOSE MONITORING 1 DEV DEV FS SCH ×2 (10:15→21:53)
--- NOTE | 2020-08-08 13:49 | NUR ---
08/08/20 RD FOLLOW UP COMPLETED PLEASE REFER TO NUTRITION ASSESSMENT UNDER CARE ACTIVITY FOR ESTIMATED NUTRITIONAL NEEDS. 1. RECOMMEND TUBE FEEDING WITH VITAL AF 1.2 @ 70 ML/HR X 6 HOURS WITH PROSOURCE FOUR TIMES DAILY -THIS WILL PROVIDE 420 ML OF VOLUME, 744 KCAL, AND 75 GM OF PROTEIN, WHICH MEETS 55% OF KCAL NEEDS AND 95% OF PROTEIN NEEDS 2. CONTACT FNS TO ADJUST TUBE FEEDING ORDER IF PRONE POSITION HOURS CHANGE 3. RECOMMEND FREE WATER FLUSH OF 100 ML Q6H 4. IF EXTUBATED RECOMMEND A SWALLOWING EVALUATION FOR PO DIET 5. RD TO FOLLOW-UP 2-3 DAYS, HIGH RISK NELSY JIN RD
--- NOTE | 2020-08-08 15:53 | NUR ---
PT PRESSURES CONTINUED TO INCREASE, PPEAK 49-51, SXN AND TX GIVEN WITH NO CHANGE IN PPEAK, CHANGED PT TO A/C PC FOR PROTECTIVE LUNG STRATEGIES. RN AWARE, WILL CONTACT MD AND MAKES CHANGES ACCORDINGLY. PC 22, R16, 100%, +14, SPO2 92%
[2020-08-08] MEDS: fentaNYL citrate - 50mL vial 2.5 MG in NACL 0.9% 200 ML IV PRN (16:57)
--- NOTE | 2020-08-08 18:00 | NUR ---
DR RAUSCH AT BEDSIDE FOR EVAL, ALSO CALLED ROSEMARY TO UPDATE HER ON PT'S CONDITION.
--- NOTE | 2020-08-08 18:09 | NUR ---
SPOKE WITH SHALOM SEYMOUR AFTER CRITICAL ABG RESULTS, INCREASE RATE TO 24 REPEAT ABG TOMORROW AM, INDORSED TO DHAVAL HARRIS AWARE.
--- NOTE | 2020-08-08 18:49 | NUR ---
PT'S SON PAM MURPHY CALLED FOR PT'S CONDITION UPDATE, INFORMED OF VENTILATOR, PRONE POSITIONING, PLAN FOR PICC LINE.
--- NOTE | 2020-08-08 18:56 | NUR ---
vm left for PICC nurse
--- NOTE | 2020-08-08 19:15 | NUR ---
RECIEVED ENDORSEMENT FROM DAY SHIFT RN, PT SEDATED RASS -3, PT ON PRONE POSITION, ETT TO VENT FIO2 100% ORESSURE 22 RATE 21 PEEP 14, SR ON MONITOR, PERIPHERAL PULSES PALPABLE, SKIN WARM AND DRY, PT HAS LOW GRADE FEVER 100.3, COOL MEASURES IN PLACE/COOLING BLANKET, PT HAS RESTRAINTS ON BUE, FC IN PLACE WITH LIGHT BLADIMIR URINE, LEFT WRIST/FOREARM PERIPHERAL IV 20/22 GAUGE, RIGHT AC 20 GAUGE, RUNNING NS 160 MLS/HR, LEVOPHED 8MCG/MIN, FENTANYL 1.5 MCG/KG/MIN, PROPOFOL 50 MCG/KG/MIN, PT SHOWING NO SIGNS OF ACUTE DISTRESS, SIDE RAILS UP AND SAFETY MEASURES IN PLACE, WILL CONTINUE WITH CURRENT POC AND MONITORING
--- NOTE | 2020-08-08 20:12 | NUR ---
RECEIVED REPORT FROM AM SHIFT. PT SEEN AND ASSESSED. PT IS IN PRONE POSITION. PT IS INTUBATED WITH ETT SIZE 8.0 AND SECURED WITH ANCHOR-FAST AT 24 cm. PT IS ON VENT SETTINGS AC/PC RR 24, PIP 22, iT 0.90, PEEP 14, FiO2 100% WITH SPO2 OF 90%. VENT IS PLUGGED IN RED OUTLET AND ALARMS ARE SET AND AUDIBLE TO ENVIRONMENT. PT IS IN NO APPARENT RESPIRATORY DISTRESS AT THIS TIME. HHN TX GIVEN ORDERED VIA INLINE AND PT TOLERATED TX WELL WITH NO ADVERSE REACTION. AUSCULTATION REVEALS RALES BREATH SOUNDS. SUCTION SMALL AMOUNT OF WHITE/YELLOW THICK SECRETIONS FROM ETT. WILL CONTINUE TO MONITOR PT.
[2020-08-08] MEDS: LEVOFLOXACIN 750 MG/D5W PREMIX 150 ML IV SCH (21:02)
--- NOTE | 2020-08-08 21:15 | NUR ---
PT STILL IN PRONE POSITION, LOW GRADE FEVER OF 100.5, COOLING MEASURES/COOLING BLANKET IN PLACE, ADMINISTERED 2100H MEDICATIONS ORDERED, PT SHOWING NO SIGNS OF ACUTE DISTRESS, WILL CONTINUE TO MONITOR
--- NOTE | 2020-08-08 23:15 | NUR ---
REPOSITIONED PT TO SUPINE POSITION, CHECKED NGT ON RIGHT NARE FOR PATENCY AND IRRIGATION, <5 ML RESIDUAL NOTED, ADMINISTERED TYLENOL 350MG FOR LOW GRADE FEVER 101.3, ORAL CARE AND SUCTIONING PERFOREMD, PT SHOWING NO SIFNS OF ACUTE DISTRESS, SIDE RAILS UP AND SAFETY MEASURES IN PLACE, WILL CONTINUE TO MONITOR
--- NOTE | 2020-08-08 23:15 | NUR ---
PT WAS SUCCESSFULLY TURNED FROM PRONE POSITION TO SUPINE POSITION. PT IS IN NO APPARENT RESPIRATORY DISTRESS AT THIS TIME. BILATERAL RALES BREATH SOUNDS ON AUSCULTATION. SUCTIONED SMALL AMOUNT OF WHITE/YELLOW THICK SECRETION. AIRWAY IS PATENT. HHN TX GIVEN ORDERED AND PT TOLERATED TX WELL WITH NO ADVERSE REACTION. RNs AT BEDSIDE. WILL CONTINUE TO MONITOR PT.
[2020-08-08] MEDS ORDERED: CRUSHER, PILL MC ONE (23:24)
[2020-08-08] MEDS: ACETAMINOPHEN 325 MG TAB PO PRN (23:33)
[2020-08-09] VITALS (107 sets, daily range): BP systolic 74–137; BP diastolic 31–68
--- NOTE | 2020-08-09 00:10 | NUR ---
STARTED NGT FEEDING VITAL AF 1.2 20ML/HR FWF 100ML Q4H
[2020-08-09] MEDS: PROPOFOL 1000 MG/100 ML PREMIX 100 ML IV PRN ×6 (00:37→22:16)
[2020-08-09] MEDS: PIPERACILLIN/TAZOBACTAM 3.375 GM in DEXTROSE 5% 50 ML IV SCH ×4 (00:41→18:34)
[2020-08-09] MEDS: NOREPINEPHRINE 4 MG in DEXTROSE 5% 250 ML IV PRN ×3 (01:24→21:18)
[2020-08-09] MEDS: NACL 0.9% 1,000 ML IV SCH ×2 (02:06→10:01)
--- NOTE | 2020-08-09 02:09 | NUR ---
PT IN SUPINE POSITION, NGT TO TF IN PROCESS VITAL AF 1.2 70ML/HR FWF 100ML Q6H, PT HAS LOW GRADE FEVER 100.1, COOLING MEASURES/COOLING BLANKET IN PLACE, HUNG NEW BAG OF NACL 0.9% 1000ML BAG, PT SHOWING NO SIGNS OF ACUTE DISTRESS, WILL, SIDE RAILS UP AND SAFETY MEASURES IN PLACE, WILL CONTINUE TO MONITOR
[2020-08-09] MEDS: LEVALBUTEROL 1.25 MG/0.5 ML NEBU INH SCH ×4 (03:25→15:34)
--- NOTE | 2020-08-09 05:20 | NUR ---
REPOSITIONED PT TO PRONE POSITION, PAUSED NGT FEEDING, ORAL CARE AND SUCTIONING PERFOREMD, AM CARE GIVEN, CHANGED LINEN, ALBERT CARE PROVIDED, EMPTIED FC BAG, PT AFEBRILE, PT SHOWING NO SIGNS OF ACUTE DISTRESS, SIDE RAILS UP AND SAFETY MEASURES IN PLACE, WILL CONTINUE TO MONITOR
--- NOTE | 2020-08-09 05:20 | NUR ---
PT WAS SUCCESSFULLY TURNED FROM SUPINE POSITION INTO PRONE POSITION. PT IS IN NO APPARENT RESPIRATORY DISTRESS AT THIS TIME. SPO2 92% ON FiO2 OF 100%. BILATERAL RALES BREATH SOUNDS ON AUSCULTATION. SUCTIONED SMALL AMOUNT OF YELLOW THICK SECRETION. AIRWAY IS PATENT. RNs AT BEDSIDE. WILL CONTINUE TO MONITOR PT.
[2020-08-09 05:26] LABS: HEMATOCRIT 31.4 % (36-52); HEMOGLOBIN 9.8 g/dL (12.0-18.0); MEAN CORPUSCULAR HEMOGLOBIN 21 pg (27-31); MEAN CORPUSCULAR HGB CONC 31 g/dL (33-37); MEAN CORPUSCULAR VOLUME 66.1 fL (80-94); PLATELET COUNT (AUTO) 654 K/uL (140-450); RED BLOOD CELL COUNT(AUTO) 4.75 MIL/uL (4.20-6.10); RED CELL DISTRIBUTION WIDTH 19.4 % (11.6-13.7)
[2020-08-09 05:51] LABS: WHITE BLOOD COUNT (AUTO) 30.1 K/uL (4.8-10.8)
[2020-08-09 05:56] LABS: ANION GAP 15.3 (8-16); CARBON DIOXIDE 22.4 mmol/L (21-32); CREATININE 2.4 mg/dL (0.6-1.3); POTASSIUM 4.7 mmol/L (3.5-5.1)
[2020-08-09 06:02] LABS: MAGNESIUM 2.5 mg/dL (1.8-2.4); PHOSPHORUS 6.7 mg/dL (2.5-4.9)
[2020-08-09 06:36] LABS: LYMPHOCYTES % (MANUAL) 5 % (20-46); MONOCYTES % (MANUAL) 1 % (5-12)
[2020-08-09 06:37] LABS: EOSINOPHILS % (MANUAL) 10 % (0-4)
--- NOTE | 2020-08-09 07:12 | NUR ---
ENDORSED TO DAY SHIFT RN, LOWELL, FOR CONTINUITY OF CARE
--- NOTE | 2020-08-09 07:14 | NUR ---
RECEIVED BEDSIDE REPORT FROM ACCOUNT EXECUTIVE TRAINEE NURSE GALINA. PT LAYING PRONE POSITION, PADDING ON BONY AREAS, AND HEEL PROTECTORS IN PLACE, SEDATED RASS -3, DRY WEIGHT 88 KG, PT IS NOT ABLE TO FOLLOW COMMANDS AND UNABLE TO MAKE NEEDS KNOWN. RESPIRATION EVEN AND UNLABORED, ETT TO VENT, SETTING AC/VC FIO2 100%, RATE 24, PEEP 14, SPO2 AT 95%, LUNGS SOUNDS RHONCHI. FLACC 0. NO SIGNS OF ACUTE DISTRESS NOTED. IV ON L WRIST 20G, LFA 22G, AND RAC 20G, CLEAN AND INTACT, RUNNING IVF NS AT 100 ML/HR, LEVOPHED AT 8 MCG/MIN (30 ML/HR), FENTANYL 1.5 MCG/KG/HR ( 13.2 ML/HR), PROPOFOL AT 40 MCG/KG/MIN (21.12 ML/HR). SKIN WARM AND CLEAN. SOFT WRIST RESTRAINT ON BILATERALLY, NO SIGNS OF INJURY NOTED. PT IS BED REST FOR GENERALIZED WEAKNESS. PT IS INCONTINENT ALBERT IN PLACE DRAINING WITH GRAVITY YELLOW URINE NOTED IN BAG. NGT IN L NARE, NGT FEEDING HELD WHILE PRONING PER MD ORDER. TOOL CLERK IN PLACE. SAFETY PROTOCOL IN PLACE. BED IN LOW POSITION AND HOB ELEVATED 30 DEGREE, BED LOCKED.
--- NOTE | 2020-08-09 07:27 | NUR ---
RECEIVED ON A [address]APE R860 VENTILATOR PLUGGED INTO RED OUTLET TOLERATING WELL WITHOUT ADVERSE REACTIOSN NOTED TO AN ENDOTRACHEAL TUBE #8.0 SECURED AT 24cm TEETH/GUM LINE CUFF PRESSURE CHECKED NOTED AMBU BAG AT BEDSIDE PRONE POSITION WITH HEAD TO LEFT SIDE WITH ENDOTRACHEAL TUBE CONCURRENT TO LEFT SIDE OF ORAL LOC SEDATED CURRENTLY INFUSING WITH 40mcg PROPOFOL AND FENTANYL 1.5mcg RESPONSIVE TO STIMULUS GOOD CHEST RISE ENDOTRACHEAL SUCTION FOR LARGE THIN YELLOW SECRETIONS AIRWAY PATENT SATURATION 89% ON FIO2 OF 100% PER ARDS PROTOCOL INCREASED FIO2 TO [id number] B/P REVIEWED CURRENTLY INFUSING WITH INFUSING WITH 8mcg OF NOR EPI INSP/EXP RATIO 1:1.8 DECREASED Tinsp TO 0.80 SECONDS TO KEEP EXPIRATORY RATIO AT 2.O OR GREATER NOW 2.I MALICK/RN NOTIFIED OF VENTILATOR CHANGES
--- NOTE | 2020-08-09 07:57 | NUR ---
FOLLOW UP WITH PICC LINE RN FOR PICC LINE INSERTION, SPOKE WITH HAMMER SETTER HELGA. PER HELGA, HE WILL PAGE THE PICC LINE RN WILMA AND WILL CALL US BACK.
--- NOTE | 2020-08-09 08:58 | NUR ---
SEDATED PRONE POSITION RESTING COMFORTABLY GOOD CHEST RISE POST ABG PUNCTURE AT 0915 ENDOTRACHEAL SUCTION FOR SMALL YELLOW SECRETIONS AIRWAY PATENT
[2020-08-09] MEDS ORDERED: CLINICAL MONITORING MC SCH (09:00)
[2020-08-09] MEDS: amLODIPine 5 MG TAB PO SCH (09:00)
[2020-08-09] MEDS: BENAZEPRIL 20 MG TAB PO SCH (09:00)
--- NOTE | 2020-08-09 09:19 | NUR ---
RECEIVED A CALL BACK FROM PICC RN WILMA, HE WAS AWARE OF THE ORDER. AND SAID WILL BE HERE AROUND AFTERNOON.
--- NOTE | 2020-08-09 09:27 | NUR ---
PAGED DR. JACKIE RAUSCH [phone] TO REVIEW AB SAMPLE REPORT CALL BACK NUMBER [phone]
[2020-08-09] MEDS: PANTOPRAZOLE 40 MG INJ VIAL IVP SCH (09:55)
[2020-08-09] MEDS: metFORMIN 500 MG TAB PO SCH ×2 (09:55→20:38)
[2020-08-09] MEDS: ENOXAPARIN 40 MG/0.4 ML SYR SUBQ SCH (09:57)
[2020-08-09] MEDS: BLOOD GLUCOSE MONITORING 1 DEV DEV FS SCH ×2 (09:58→21:00)
--- NOTE | 2020-08-09 10:00 | NUR ---
JACKIE BAE DR TO REVIEW NARCISO LIZARRAGA REPORT Addendum: 08/09/20 at 1018 by Yo Adams RT SAMPL = SAMPLE
--- NOTE | 2020-08-09 10:00 | NUR ---
ADMINISTERED AM SCHEDULED MEDICATIONS PER MD ORDER. HELD BP MEDICATIONS DUE TO PT ON LEVOFED DRIP FOR BP SUPPORT. FLUSHED BEFORE AND AFTER MED ADMINISTRATION ON NG TUBE. CLAMPED NG TUBE HELD FEEDING PER MD ORDER WHILE PT PRONING. PROVIDED HYGIENE CARE AND REPOSITIONED PT ARMS. RESPIRATIONS EVEN AND UNLABORED ON ETT TO VENT SETTING ACPC. ETCHER MACHINE IN PLACE. BED IN LOW POSITION BED LOCK.
--- NOTE | 2020-08-09 10:12 | NUR ---
CALL BACK FROM DR. JACKIE RAUSCH REVIEWED ABG SAMPLE REPORT AND DIAGNOSTIC SATURATION OF 95% NEW ORDER: INCREASE RATE 28; ABG AM 08/10 8am
--- NOTE | 2020-08-09 10:25 | NUR ---
PER PERRY RAUSCH INCREASED RATE T0 28 BPM; PEAK PRESSURE [id number] DECREASED PEEP TO [id number] TO MAINTAIN PEAK PRESSURE AT 20gxK1N or LESS NOW [id number]; POST RATE RATE INCREASE DESCENDING EXPIRATORY RATIO TO 1.6 DECREASED I/TIME TO 0.70 SECONDS TO MAINTAIN EXPIRATORY RATIO AT 2.0 OR GREATER NOW 2.0
--- NOTE | 2020-08-09 11:28 | NUR ---
SEDATED PRONE POSITION RESTING WELL NO DISTRESS TOLERATING VENTILATOR AND PRONE POSITION WELL WITHOUT COMPLICATIONS EQUAL CHEST RISE GOOD AERATION THROUGHOUT BILATERAL LUNG DUARTE AIRWAY PATENT
--- NOTE | 2020-08-09 11:40 | NUR ---
REPOSITIONED PATIENT'S ARM AND RELEASED SOFT WRIST RESTRAINT TO PERFORM RANGE OF MOTIONS, NO SIGNS OF INJURY AND CAPILLARY REFILLED < 3 SECONDS. REAPPLIED SOFT WRIST RESTRAINT, INTACT AND SECURED. NO SIGNS OF ACUTE DISTRESS NOTED. DISTRICT ADMINISTRATOR IN PLACE. SAFETY MEASURES IN PLACE. BED IN LOW POSITION, HOB ELEVATED 30 DEGREE, BED LOCKED.
--- NOTE | 2020-08-09 11:51 | NUR ---
SATURATION 96% ON FIO2 OF 100% TITRATED FIO2 TO 95% MALICK/RN NOTIFIED
--- NOTE | 2020-08-09 12:13 | NUR ---
DR ALAMO IS ROUNDING ON PATIENT. PER DR ALAMO, KIDNEY FUNCTION IS OK FOR PICC LINE.
--- NOTE | 2020-08-09 13:13 | NUR ---
PRONE POSITION NO DISTRESS NOTED GOOD CHEST RISE AND AERATION THROUGHOUT BILATERAL LUNG DUARTE AIRWAY PATENT SATURATION 97% ON FIO2 OF 90% TITRATED FIO2 TO 90% MALICK/RN NOTIFIED ELECTRONICS WORKER TO MONITOR
[2020-08-09] MEDS: fentaNYL citrate - 50mL vial 2.5 MG in NACL 0.9% 200 ML IV PRN (14:00)
--- NOTE | 2020-08-09 15:19 | NUR ---
L HAND 22G IV INFILTRATED. REMOVED IV. CANNULA INTACT NO BLEEDING ON IV SITE. WITH ASSIST FROM RT, REPOSITIONED PT HEAD AND ARMS. RELEASED SOFT WRIST RESTRAINT PERFORMED RANGE OF MOTION, NO INJURIES NOTED. PT TOLERATED WELL. NO SIGNED OF ACUTE DISTRESS NOTED. MARKETING COMMUNICATIONS SPECIALIST IN PLACE SAFETY MEASURES IN PLACE.
--- NOTE | 2020-08-09 15:35 | NUR ---
PRONE POSITION TOLERATING WELL WITHOUT COMPLICATIONS GOOD CHEST RISE ENDOTRACHEAL SUCTION FOR SMALL THICK YELLOW WITH BLOOD TINGE SECRETIONS AIRWAY PATENT
--- NOTE | 2020-08-09 15:38 | NUR ---
URINE SAMPLE COLLECTED FROM URINARY CATHETER PORT AND WALK OVER TO DELIVER SAMPLE AT LAB
--- NOTE | 2020-08-09 15:55 | NUR ---
RN'S AND CALENDER LET OFF HELPER AT BEDSIDE TURNED HEAD TO THE RIGHT SIDE WITH ENDOTRACHEAL TUBE CONCURRENT TO RIGHT SIDE OR ORAL TOLERATED HEAD TURNING WELL WITHOUT INCIDENT
--- NOTE | 2020-08-09 17:23 | NUR ---
TOLERATING PRONE POSITION WITHOUT COMPLICATIONS NO DISTRESS NOTED GOOD CHEST RISE ENDOTRACHEAL SUCTION FOR LARGE THICK YELLOW SECRETIONS WITH MODERATE THICK YELLOW PLUG AIRWAY PATENT SATURATION 95% ON FIO2 OF 90% TITRATED FIO2 TO 85% MALICK/RN NOTIFIED
--- NOTE | 2020-08-09 17:39 | NUR ---
DR RAUSCH IS ROUNDING ON PATIENT AT BEDSIDE.
--- NOTE | 2020-08-09 17:40 | NUR ---
DR. JACKIE RAUSCH AT BEDSIDE REVIEWED PATIENT PULMONARY STATUS VENTILATOR STATUS AND DIAGNOSTIC READING NEW ORDER CHANGE RESPIRATORY DRUG TO DUONEB WITH SAME FREQUENCY; ADD ACETYLCYSTEINE 1mL/10% BIDR
--- NOTE | 2020-08-09 18:14 | NUR ---
STARTED PATIENT ON NGT FEEDING PER DR RAUSCH ORDER, 35 ML/HR AND WATER FLUSH 100 ML/Q6HRS.
--- NOTE | 2020-08-09 18:23 | NUR ---
PATIENT'S CALLED, UPDATED ROSEMARY WITH PATIENT'S CURRENT CONDITION, ROSEMARY WAS AWARE. ROSEMARY CAME TO THE FRONT LOBBY AND TOOK ALL PATIENT'S BELONGINGS HOME, INCLUDED PHONE, AND PHONE LAST REPAIRER HELPER.
--- NOTE | 2020-08-09 18:35 | NUR ---
ADMINISTERED SCHEDULED ZOSYN. STARTED A NEW BOTTLE OF PROPOFOL AND CHANGED ALL NEW TUBING.
--- NOTE | 2020-08-09 19:40 | NUR ---
RECEIVED REPORT FROM AM SHIFT. PT SEEN AND ASSESSED. PT IS IN PRONE POSITION. PT IS INTUBATED WITH ETT SIZE 8.0 AND SECURED WITH ANCHOR-FAST AT 24 cm. PT IS ON VENT SETTINGS AC/PC RR 28, PIP 22, iT 0.70, PEEP 16, FiO2 85% WITH SPO2 OF 95%. VENT IS PLUGGED IN RED OUTLET AND ALARMS ARE SET AND AUDIBLE TO ENVIRONMENT. PT IS IN NO APPARENT RESPIRATORY DISTRESS AT THIS TIME. HHN TX GIVEN ORDERED VIA INLINE AND PT TOLERATED TX WELL WITH NO ADVERSE REACTION. AUSCULTATION REVEALS RALES BREATH SOUNDS. SUCTION SMALL AMOUNT OF YELLOW THICK SECRETIONS FROM ETT. WILL CONTINUE TO MONITOR PT.
[2020-08-09] MEDS: ACETYLCYSTEINE 10% (100 MG/ML) 100 MG/ML VIAL INH SCH (19:45)
[2020-08-09] MEDS: ALBUTEROL SULFATE/IPRATROPIU 3 ML SOL IH SCH ×2 (19:45→23:19)
--- NOTE | 2020-08-09 20:00 | NUR ---
RECEIVED REPORT BY DAY SHIFT RN. ETT TO VENT ACPC. FIO2 85%, RATE 28, PEEP 16. RASS -3, SLIGHT BODY MOVEMENT. DRY WEIGHT 88kg. RHONCHI UPON LUNG AUSCULTATION. S1S2 HEART SOUNDS AUSCULTATED. NG TUBE TO RIGHT NARE, VITAL AF FEEDING RUNNING AT 35 ML/HR IN PRONE POSITION. RIGHT FOREARM 20G, PATENT, NO REDNESS, OR INFILTRATION NOTED. LEFT FOREARM 20G AND PATENT, NO REDNESS, OR INFILTRATION NOTED. RIGHT FOREARM RUNNING NS @ 100 ML/HR AND PROPOFOL 40 MCG/KG @21.12 ML/HR. LEFT FOREARM RUNNING LEVOPHED 3.395 MCG/MIN @ 12.73 ML/HR AND FENTANYL 1.5 MCG/KG/HR @ 13.2 ML/HR. HYPOACTIVE BS. ALBERT CATHETER IN PLACE, SKIN CLEAN, DRY AND INTACT. PATIENT LYING IN PRONE POSITION. SKIN WARM, DRY AND INTACT. BORDERLINE TEMP OF 100.4, COOLING MEASURES IN PLACE, COOLING BLANKET ON AND RECTAL PROBE IN PLACE. RESTRAINTS ON BILATERAL WRISTS, NO INJURY NOTED. BED IN LOW, LOCKED POSITION, ALL SAFETY MEASURES IN PLACE.
--- NOTE | 2020-08-09 20:30 | NUR ---
PT WAS SUCCESSFULLY TURNED FROM PRONE POSITION TO SUPINE POSITION DUE TO THE NEED TO INSERT A PICC LINE. PT IS IN NO APPARENT RESPIRATORY DISTRESS AT THIS TIME. BILATERAL RALES BREATH SOUNDS ON AUSCULTATION. SUCTIONED SMALL AMOUNT OF YELLOW THICK SECRETION. AIRWAY IS PATENT. RNs AT BEDSIDE. WILL CONTINUE TO MONITOR PT.
[2020-08-09] MEDS: LEVOFLOXACIN 750 MG/D5W PREMIX 150 ML IV SCH (20:36)
[2020-08-09] MEDS: FUROSEMIDE 20 MG/2 ML VIAL IVP SCH (20:36)
[2020-08-09] MEDS: ACETAMINOPHEN 325 MG TAB PO PRN (20:37)
--- NOTE | 2020-08-09 20:37 | NUR ---
PATIENT'S TEMP 100.4 F. PRN TYLENOL 650MG GIVEN ORDERED PER MD. WILL CONTINUE TO MONITOR.
--- NOTE | 2020-08-09 20:50 | NUR ---
PICC LINE NURSE AT BEDSIDE FOR PICC LINE PLACEMENT.
--- NOTE | 2020-08-09 21:37 | NUR ---
PATIENT'S LATEST TEMP 99.[address] F[address] COOL[address] MEASURES IN PLACE, WILL CONTINUE TO MONITOR.
--- NOTE | 2020-08-09 21:45 | NUR ---
OKAY TO USE PICC LINE ON THE RIGHT UPPER EXTREMITY PER PICC LINE NURSE WILMA.
--- NOTE | 2020-08-09 22:37 | NUR ---
PATIENT'S TEMP 98.9 F, COOLING MEASURES IN PLACE, WILL CONTINUE TO MONITOR.
--- NOTE | 2020-08-09 23:20 | NUR ---
PT STILL REMAINS ON VENT SUPPORT. HHN TX GIVEN ORDERED VIA INLINE AND PT TOLERATED TX WELL WITH NO ADVERSE REACTION. PT IS IN NO RESPIRATORY DISTRESS AT THIS TIME. WILL CONTINUE TO MONITOR PT.
[2020-08-10] VITALS (101 sets, daily range): BP systolic 77–126; BP diastolic 28–75
[2020-08-10] MEDS: NOREPINEPHRINE 4 MG in DEXTROSE 5% 250 ML IV PRN (02:55)
[2020-08-10] MEDS: ALBUTEROL SULFATE/IPRATROPIU 3 ML SOL IH SCH ×5 (03:01→19:32)
[2020-08-10] MEDS: NACL 0.9% 1,000 ML IV SCH ×2 (03:06→03:09)
--- NOTE | 2020-08-10 04:00 | NUR ---
PATIENT WAS PLACED IN PRONE POSITION AND REVERSED [place]. NO DISTRESS NOTED. WILL CONTINUE TO MONITOR.
--- NOTE | 2020-08-10 04:00 | NUR ---
PT WAS SUCCESSFULLY TURNED FROM SUPINE POSITION INTO PRONE POSITION. PT IS IN NO APPARENT RESPIRATORY DISTRESS AT THIS TIME. SPO2 93% ON FiO2 OF 80%. BILATERAL RALES BREATH SOUNDS ON AUSCULTATION AFTER PRONE. SUCTIONED SMALL AMOUNT OF YELLOW THICK SECRETION. AIRWAY IS PATENT. RNs AT BEDSIDE. WILL CONTINUE TO MONITOR PT.
--- NOTE | 2020-08-10 04:22 | NUR ---
PATIENT'S RESIDUAL WAS 200 ML, HELD FEEDING. WILL REASSESS IN 1HR.
[2020-08-10 05:25] LABS: HEMOGLOBIN 9.4 g/dL (12.0-18.0); MEAN CORPUSCULAR HEMOGLOBIN 20 pg (27-31); MEAN CORPUSCULAR HGB CONC 30 g/dL (33-37); MEAN CORPUSCULAR VOLUME 67.1 fL (80-94); PLATELET COUNT (AUTO) 852 K/uL (140-450); RED BLOOD CELL COUNT(AUTO) 4.63 MIL/uL (4.20-6.10); RED CELL DISTRIBUTION WIDTH 19.7 % (11.6-13.7)
[2020-08-10] MEDS: PIPERACILLIN/TAZOBACTAM 3.375 GM in DEXTROSE 5% 50 ML IV SCH ×4 (05:32→12:26)
[2020-08-10 05:53] LABS: ANION GAP 22.6 (8-16); CARBON DIOXIDE 16.1 mmol/L (21-32); CREATININE 3.9 mg/dL (0.6-1.3)
--- NOTE | 2020-08-10 06:16 | NUR ---
PATIENT'S RESIDUAL WAS 10ML. RESTARTED FEEDING @ 35ML/HR. PATIENT IN PRONE POSITION.
[2020-08-10 06:21] LABS: POTASSIUM 5.7 mmol/L (3.5-5.1)
[2020-08-10 06:24] LABS: WHITE BLOOD COUNT (AUTO) 35.7 K/uL (4.8-10.8)
[2020-08-10 06:25] LABS: EOSINOPHILS % (MANUAL) 8 % (0-4); LYMPHOCYTES % (MANUAL) 4 % (20-46); METAMYELOCYTES % 1 % (0-0); MONOCYTES % (MANUAL) 4 % (5-12)
[2020-08-10] MEDS: fentaNYL citrate - 50mL vial 2.5 MG in NACL 0.9% 200 ML IV PRN (06:36)
[2020-08-10 06:51] LABS: MAGNESIUM 2.3 mg/dL (1.8-2.4)
[2020-08-10] MEDS: ACETYLCYSTEINE 10% (100 MG/ML) 100 MG/ML VIAL INH SCH ×2 (06:52→19:34)
[2020-08-10 06:57] LABS: PHOSPHORUS 9.8 mg/dL (2.5-4.9)
--- NOTE | 2020-08-10 07:14 | NUR ---
RECEIVED PATIENT ON VENT WITH SETTING CHARTED. ET TUBE SECURED, SUCTION PATIENT WITH MEDIUM TO MODERATE AMOUNT OF SECRETION. BREATH SOUND PRESENT BILAT COARSE AND DIMINISHED AT LOWER LOBE POSTERIOR. AMBU BAG AT BEDSIDE. VENT PLUG IN TO RED OUTLET.WILL CONTINUE TO MONITOR PT.
[2020-08-10] MEDS ORDERED: NOREPINEPHRINE 16 MG in DEXTROSE 5% 250 ML IV PRN (07:15)
--- NOTE | 2020-08-10 07:30 | NUR ---
RECEIVED BEDSIDE REPORT FROM NURSE MIN. RT AT BEDSIDE. PATIENT IS LYING ON PRONE POSITION. VENT SETTINGS: AC/PC FiO2 80% RATE 28 PEEP 16, BREATHING EVEN AND UNLABORED. RASS -3, DRY WEIGHT 88 KG. SHOWS NO SIGNS OF ACUTE DISTRESS. PICC LINE KAPIL,CLEAN AND INTACT, LABELED, INFUSING LEVOPHED 16 MCG/MIN, PROPOFOL 20 MCG/KG/MIN, FENTANYL 2 MCG/KG/HR, AND IVF NS AT 100 ML/HR. RFA AND LFA 20G, CLEAN AND INTACT, SALINE LOCK. NGT TUBE IN R NARE, RUNNING VITAL AF 1.2 AT 35 ML/HR AND WATER FLUSH 100 ML/Q6H. SOFT WRIST RESTRAINTS BILATERALLY, NO SIGNS OF INJURY, INTACT AND SECURED. ALBERT IN PLACE, DRAINING WITH GRAVITY, NO URINE IN BAG NOTED. CARDIAC MONITORING IN PLACE. SAFETY PROTOCOL IN PLACE. HOB ELEVATED 30 DEGREE, BED IN LOW POSITION AND BED LOCKED.
--- NOTE | 2020-08-10 08:59 | NUR ---
DR HENDERSON IS ROUNDING AND ASSESSING PT AT BEDSIDE.
[2020-08-10] MEDS: amLODIPine 5 MG TAB PO SCH (09:00)
[2020-08-10] MEDS ORDERED: ENOXAPARIN 30 MG/0.3 ML SYR SUBQ SCH (09:00)
--- NOTE | 2020-08-10 09:00 | NUR ---
INCREASED [id number]%, RN AWARE.
--- NOTE | 2020-08-10 09:12 | NUR ---
DR HENDERSON SPOKE WITH PATIENT'S ROSEMARY AND EXPLAINED TO ROSEMARY ON REGARDS HEMODIALYSIS. ROSEMARY WAS AWARE AND ACKNOWLEDGED. OBTAINED TELEPHONE CONSENT WITH CHARGE NURSE YASMIN FOR HEMODIALYSIS CONSENT.
--- NOTE | 2020-08-10 09:27 | NUR ---
DR LEÓN IS ROUNDING AND ASSESSING PT AT BEDSIDE.
[2020-08-10] MEDS ORDERED: DEXTROSE 50% 50 ML SYR IVP SCH (09:35)
[2020-08-10] MEDS ORDERED: INSULIN REGULAR, HUMAN 100 UNIT/ML VIAL IVP SCH (09:35)
--- NOTE | 2020-08-10 09:49 | NUR ---
INCREASED PC 24 RN AWARE
[2020-08-10] MEDS: FUROSEMIDE 20 MG/2 ML VIAL IVP SCH ×2 (09:53→20:30)
[2020-08-10] MEDS: PANTOPRAZOLE 40 MG INJ VIAL IVP SCH (09:54)
[2020-08-10] MEDS: BLOOD GLUCOSE MONITORING 1 DEV DEV FS SCH ×2 (09:56→20:39)
[2020-08-10] MEDS ORDERED: SODIUM BICARBONATE 8.4% 150 MEQ in DEXTROSE 5% 1,000 ML IV SCH (10:00)
--- NOTE | 2020-08-10 10:24 | NUR ---
CHECKED BLOOD GLUCOSE 130 NO COVERAGE NEEDED. ADMINISTERED SCHEDULED MORNING MEDS. HELD BP MED DUE TO PT ON LEVOPHED DRIP. CHECKED NG TUBE RESIDUAL RECEIVED MORE THAN 200ML HELD FEEDING. HOLD FEEDING. PROVIDED HYGIENE CARE. CHANGED ALL DIRTY LINENS RELEASES SOFT WRIST RESTRAINS AND PERFORMED ROM. NO INJURIES NOTED. REPOSITIONED PT ARMS. PT TOLERATED FAIR. CASH MANAGEMENT OFFICER IN PLACE. SAFETY MEASURES IN PLACE.
--- NOTE | 2020-08-10 10:41 | NUR ---
CHANGED IV FLUID TO SODIUM BICARB INFUSING AT 75ML/HR PER MD ORDER.
--- NOTE | 2020-08-10 12:28 | NUR ---
STARTED ZOSYN. NG TUBE RESIDUAL 160ML. HELD NG TUBE FEEDING. REPOSITIONED PT. RELEASED RESTRAINS AND PERFROMED ROM. NO INJURIES NOTED. LENS COATER IN PLACE. SAFETY MEASURES IN PLACE.
[2020-08-10] MEDS: PROPOFOL 1000 MG/100 ML PREMIX 100 ML IV PRN (13:16)
--- NOTE | 2020-08-10 14:45 | NUR ---
CHECKED RESIDUAL. RECEIVED 50ML. STARTED NEW BOTTLE OF FEEDING VITAL AF 1.2 CHANGED ALL THE TUBING FEEDING RUNNING AT 35 ML/HR. WATER FLUSH 100ML Q6HR. REPOSITIONED PATIENT. REMOVED RESTRAINTS FOR 15MIN. PERFORMED ROM AND ASSESSED SKIN, NO SIGNS OF INJURY NOTED. RESORT KEEPER IN PLACE. SAFETY PRECAUTIONS IN PLACE.
--- NOTE | 2020-08-10 15:00 | NUR ---
DR MARROQUIN'S PA ZULEIMA BANGURA IS TALKING TO PATIENT'S ROSEMARY ON PHONE REGARDS GUSTAVO CATHETER PLACEMENT. ROSEMARY WAS AWARE AND AGREED TO PLACEMENT. OBTAINED TELEPHONE CONSENT WITH COOK SOUP YASMIN FOR GUSTAVO CATHETER PLACEMENT.
--- NOTE | 2020-08-10 15:44 | NUR ---
PAGED DR LEÓN ON REGARDS LEVONOX AND PATIENT IS GOING TO GET DIALYSIS, AWAITING DR LEÓN TO RETURN CALL.
--- NOTE | 2020-08-10 15:49 | NUR ---
RECEIVED A CALL BACK FROM DR LEÓN AND INFORMED THAT PATIENT WILL BE GETTING DIALYSIS AND DR HENDERSON INPUTS ORDER FOR TODAY AND DR MARROQUIN WILL INSERT GUSTAVO CATH, DR LEÓN WAS AWARE AND OK TO CHANGE TO HEPARIN 5,000 SUBQ BID. WILL INPUT ORDER ACCORDINGLY.
--- NOTE | 2020-08-10 15:51 | NUR ---
CALLED DIALYSIS JOAO PUENTES, AND INFORMED THAT ORDER FOR DIALYSIS INPUT BY DR HENDERSON AND AWAITING FOR DR MARROQUIN TO INSERT GUSTAVO CATH, JOAO PUENTES WAS AWARE AND WILL NOTIFY JOAO FOR DIALYSIS ONCE PLACEMENT INSERTED.
[2020-08-10] MEDS ORDERED: VASOPRESSIN 20 UNITS in NACL 0.9% 250 ML IV SCH (17:45)
--- NOTE | 2020-08-10 17:45 | NUR ---
COLLABORATED WITH RT TO POSITION PT SUPINE. PROVIDED ORAL CARE SUCTIONING CARE. REPOSITIONED PT, OFFLOAD PRESSURE WITH PILLOW, CHANGED ALL DIRTY LINENS. APPLIED GOLD PROSPECTOR ON PT AND SPO2 MONITOR. SAFETY MEASURES IN PLACE.
--- NOTE | 2020-08-10 18:42 | NUR ---
RESTARTED TUBE FEEDING AT 70 ML/HR WHILE PT SUPINE, . 100 ML/Q6HR WATER FLUSH PER MD ORDER. RFA IV INFILTRATED AND REMOVED. CANULA INTACT AND NO BLEEDING. JUSTUS RETRAINS ON SECURE AND INTACT NO INJURIES NOTED. DOCKING SAW OPERATOR IN PLACE. SAFETY PROTOCOL IN PLACE. HOB ELEVATED 30 DEGREES.
--- NOTE | 2020-08-10 19:14 | NUR ---
ENDORSED PATIENT AT BEDSIDE TO CROP GRAIN OR LIVESTOCK FARMER NURSE BECKY FOR CONTINUITY OF CARE. DR MARROQUIN IS ROUNDING ON PATIENT AND ABOUT TO START INSERT GUSTAVO CATH. ENDORSED TO BECKY TO NOTIFY NEGAR SHEPHERD RN ONCE GUSTAVO PLACEMENT IS DONE. PENAL OFFICER IN PLACE. SAFETY MEASURES IN PLACE. PATIENT IS IN STABLE CONDITION.
--- NOTE | 2020-08-10 19:36 | NUR ---
RECEIVED REPORT FROM AM SHIFT. PT SEEN AND ASSESSED. PT IS IN PRONE POSITION. PT IS INTUBATED WITH ETT SIZE 8.0 AND SECURED WITH ANCHOR-FAST AT 24 cm. PT IS ON VENT SETTINGS AC/PC RR 28, PIP 24, iT 0.70, PEEP 16, FiO2 100% WITH SPO2 OF 85%. VENT IS PLUGGED IN RED OUTLET AND ALARMS ARE SET AND AUDIBLE TO ENVIRONMENT. PT IS IN NO APPARENT RESPIRATORY DISTRESS AT THIS TIME. HHN TX GIVEN ORDERED VIA INLINE AND PT TOLERATED TX WELL WITH NO ADVERSE REACTION. AUSCULTATION REVEALS RALES BREATH SOUNDS. SUCTION SMALL AMOUNT OF YELLOW THICK SECRETIONS FROM ETT. WILL CONTINUE TO MONITOR PT.
--- NOTE | 2020-08-10 19:45 | NUR ---
RECEIVED REPORT FROM DAY SHIFT RN. PT SEDATED ON PROPOFOL @ FENTANYL DRIP. RASS-3. ETT TO VENT VENT SETTINGS: AC/PC 24 FiO2 100% RATE 28 PEEP 16, LUNGS RHONCHI, DRY WEIGHT 88 KG. PICC LINE KAPIL, VASOPRESSIN DRIP RUNNINING, LEVOPHED 22 MCG/MIN, PROPOFOL 20 MCG/KG/MIN, FENTANYL 1.5 MCG/KG/HR. RFA AND LFA 20G, CLEAN AND INTACT, SALINE LOCK. NGT TUBE IN R NARE, RUNNING VITAL AF 1.2 AT 35 ML/HR AND WATER FLUSH 100 ML/Q6H. SOFT WRIST RESTRAINTS BILATERALLY, NO SIGNS OF INJURY, INTACT AND SECURED. ALBERT IN PLACE, DRAINING WITH GRAVITY, PT OLIGURIC. SAFETY PRECAUTIONS IN PLACE. HOB ELEVATED 30 DEGREE, BED IN LOW POSITION AND BED LOCKED. WILL CONTINUE TO OBSERVE.
--- NOTE | 2020-08-10 20:54 | NUR ---
HD NURSE CALLED FOR HD TX; NEW HD CATH IN PLACE READY TO USE PER DR MARROQUIN
[2020-08-10] MEDS ORDERED: LEVOFLOXACIN 500 MG/D5W PREMIX 100 ML IV SCH (21:00)
[2020-08-10] MEDS ORDERED: PIPERACILLIN/TAZOBACTAM 2.25 GM in DEXTROSE 5% 50 ML IV SCH (21:00)
--- NOTE | 2020-08-10 22:00 | NUR ---
HD NURSE @ BEDSIDE FOR HD TREATMENT. PT VS HR 68 BP 109/44, 83% SPO2 R 28. WILL CONTINUE TO OBSERVE.
[2020-08-10] MEDS ORDERED: ATROPINE 1 MG/10 ML SYR IVP ONE (22:12)
--- NOTE | 2020-08-10 22:12 | NUR ---
PT HR 30-40S; + PULSE, RT AND HD NURSE @ BEDSIDE. 4: PT NOW PEA; LAINEY CHILDERS INITIATED. DR. JUAN JOSÉ ZAMBRANO @ BEDSIDE, COORDINATING LAINEY CHILDERS, ACCOUNTS SUPERVISOR AND ER CHARGE @ BESIDE. SEE FLOW SHEET FOR FURTHER DETAILS. 2242: TIME OF 2242; CALLED BY DR. CAN.
[2020-08-10] MEDS ORDERED: EPINEPHrine PFS 0.1 MG/ML SYR IVP ONE (22:30)
--- NOTE | 2020-08-11 01:45 | NUR ---
[facility] CALLED; PT WILL NOT BE A CANDIDATE. REF # [id number]
--- NOTE | 2020-08-11 01:50 | NUR ---
[facility] PLATER [facility]REL CALLED [phone] INFO GIVEN TO ANABEL; PLATER BARREL TO GIVE RETURN PHONE CALL.
--- NOTE | 2020-08-11 05:27 | NUR ---
SB HONING MACHINE TRY OUT SETTER RONA ROMERO STATED BODY OK TO BE RELEASED TO MORTUARY, OR [employer].
--- NOTE | 2020-08-11 06:12 | NUR ---
CALLED , ROSEMARY, REGARDING MORTUARY INFO. STATED [facility] WILL BE MORTUARY, PH# [phone] 0610: CALLED [facility]; SPOKE WITH RADHA ENCINAS AWAITING VERBAL CONSENT FROM FAMILY FOR BODY RELEASE, BROKE HANDLER PHONE NUMBER GIVEN TO FAMILY. 0612: CALLED ROSEMARY, , TO VERIFY WITH [facility] REGARDING BODY RELEASE. AWAITING, RETURN CALL FROM [facility] FOR PICKUP ETA.
--- NOTE | 2020-08-11 14:57 | NUR ---
BODY PICKED UP BY [facility] MORTU[facility].
== END 2020-08-11 14:59 | disposition expired | DRG 720 ==
LOC: MED 09:44 → MTU 12:48 → MIC 08-04 11:37
PROC: 5A1945Z Respiratory Ventilation, 24-96 Consecutive Hours (ICD-10-PCS; principal; 2020-08-07)
PROC: 0BH17EZ Insertion of Endotracheal Airway into Trachea, Via Natural or Artificial Opening (ICD-10-PCS; 2020-08-07)
PROC: 0JH63WZ Insertion of Totally Implantable Vascular Access Device into Chest Subcutaneous Tissue and Fascia, Percutaneous Approach (ICD-10-PCS; 2020-08-10)
PROC: 02HV33Z Insertion of Infusion Device into Superior Vena Cava, Percutaneous Approach (ICD-10-PCS; 2020-08-10)
PROC: B548ZZA Ultrasonography of Superior Vena Cava, Guidance (ICD-10-PCS; 2020-08-10)
PROC: 5A1D70Z Performance of Urinary Filtration, Intermittent, Less than 6 Hours Per Day (ICD-10-PCS; 2020-08-10)
DX: A41.9 Sepsis, unspecified organism (principal); J18.9 Pneumonia, unspecified organism; Z68.31 Body mass index [BMI] 31.0-31.9, adult; Z71.3 Dietary counseling and surveillance; E43 Unspecified severe protein-calorie malnutrition; J96.01 Acute respiratory failure with hypoxia; Z20.828 Contact with and (suspected) exposure to other viral communicable diseases; E87.5 Hyperkalemia; E86.0 Dehydration; E11.65 Type 2 diabetes mellitus with hyperglycemia; E87.1 Hypo-osmolality and hyponatremia; R74.01 Elevation of levels of liver transaminase levels; K44.9 Diaphragmatic hernia without obstruction or gangrene; E87.8 Other disorders of electrolyte and fluid balance, not elsewhere classified; I11.9 Hypertensive heart disease without heart failure; E66.01 Morbid (severe) obesity due to excess calories; I48.91 Unspecified atrial fibrillation; N17.0 Acute kidney failure with tubular necrosis; R65.21 Severe sepsis with septic shock; I46.9 Cardiac arrest, cause unspecified; Z79.84 Long term (current) use of oral hypoglycemic drugs; Z79.899 Other long term (current) drug therapy
CPT/HCPCS: 36415; 36600; 71045; 71260; 76604; 76705; 80048; 80053; 80202; 80305; 81003; 82150; 82550; 82553; 82803; 82948; 83036; 83605; 83615; 83690; 83735; 83880; 84100; 84134; 84436; 84443; 84484; 85025; 85379; 85384; 85610; 85651; 85730; 86140; 87040; 87070; 87081; 87086; 87205; 87449; 87804; 89220; 92610; 93005; 94003; 94640; 94664; 96361; 96365; 97116; 97161-GP; 99285; C9113; J0171; J0330; J0461; J0696; J1160; J1644; J1650; J1815; J1940; J1956; J2060; J2270; J2543; J2704; J3010; J3370; J3490; J7030; J7060; J7612; J7613; Q0092; U0003-CS